=== PATIENT | male | born 1945 | race Caucasian/White ===

== ENCOUNTER → 2019-02-03 06:32 | Outpatient (CLI) | payer MEDICARE, SELFPAY ==
--- NOTE | 2019-02-03 06:39 | CT_ITS ---
HISTORY: ARTHRITIS OF LEFT SHOULDER. HISTORY OF ROTATOR CUFF SURGERY TECHNIQUE: Noncontrast bone protocol CT of the left shoulder was performed without contrast. 2D reformats were performed by the technologist. Number of images including paperwork: [phone]. A radiation dose optimization technique was used for this scan. COMPARISON: None FINDINGS: BONES: No acute fracture. Suture anchors are present in the humeral head. JOINTS: No subluxation. Severe degenerative changes of the glenohumeral joint are noted with joint space narrowing, subchondral sclerosis and large humeral head osteophyte. Moderate to severe degenerative changes of the acromioclavicular joint are also noted. Acromiohumeral distance is narrowed measuring as little as 1 mm. Degenerative changes are seen in the visualized spine. SOFT TISSUES: Unremarkable. FOREIGN BODY: No radiopaque foreign body. VISUALIZED CHEST: Unremarkable. CT/Extremity Upper without Contra IMPRESSION: 1. No acute osseous abnormality. 2. Severe degenerative changes of the glenohumeral joint. 3. Acromiohumeral narrowing indicating rotator cuff degeneration. 4. Moderate to severe degenerative changes of the acromioclavicular joint. Individualized dose optimization techniques were used for this CT. at 0258 Reported and signed by: Reshma Luis MD Electronically Signed: Reshma Luis MD at 2:58 EDT Tel , Service support ,
== END ==
PROVIDERS: Family Provider Family Medicine; PCP Family Medicine; Referring Provider Specialist; Visit Provider Specialist
DX: M19.212 Secondary osteoarthritis, left shoulder (principal)
CPT/HCPCS: 73200

== ENCOUNTER 2020-11-30 12:55 | Observation (INO) | payer MEDICARE, SELFPAY ==
--- NOTE | 2020-11-14 12:49 | HP.PCM_ITS ---
History and Physical History and Physical [facility] Patient Name: Claudy Sawant : 1945 From: ARIEL SUE PA-C DATE OF SURGERY: 11/30/2020 SCHEDULED PROCEDURE: left total hip arthroplasty HISTORY OF PRESENT ILLNESS: Preoperative history and physical exam was performed on November 14, 2020. This is a 75-year-old male who has been having ongoing pain pain is increased with going up and down stairs, sitting, and getting up from a seated position. He does have start up pain. Pain is being constant and sharp. Patient has difficult time getting dressed due to the pain. Difficulty with putting on his socks and shoes. Patient has attempted rest with no relief in symptoms. 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 He has been on oral medications with no relief in symptoms. He denies previous surgery on his left hip. Patient has medical history pertinent for gastroesophageal reflux disease hypertension, and sleep apnea. He has attempted nonsteroidal anti-inflammatories without relief. After failing conservative measures and discussing treatment options with Dr. Sebas Duncan, the patient does want to proceed with a left total hip arthroplasty. We are obtaining surgical clearance from the primary care physician Dr. Dunlap. Patient also reports needing a implant for history of end did have it initially scheduled for 2 weeks following the surgery. I explained that we are not able to proceed with any oral/dental work for 3 months postoperatively due to the risk of infection unless it is an emergency. He did voice understanding and agreement. REVIEW OF SYSTEMS: ROS: Const: Denies change in appetite, fever and weight change. CV: Denies chest pain, heart murmur and irregular heartbeat. Resp: Denies cough, pneumonia, shortness of breath, tuberculosis and wheezing. GI: Reports heartburn, but denies constipation, diarrhea, nausea, rectal itching, bloody stools and vomiting. : Denies incontinence. Musculo: Denies leg swelling, pain, trouble walking and weakness. Skin: Denies Raynaud's, history of shingles and tattoo. Neuro: Denies ambulatory dysfunction, dizziness, numbness/tingling and tremor. Psych: Denies anxiety, insomnia and stress. Nilson/Lymph: Denies anemia, bleeding/bruising tendency and past transfusion. Reviewed, no changes. PAST MEDICAL HISTORY: Advance Care Plan: Other Directive, POA Effective Date: 12/25/2018 Other Directive, LIVING WILL Effective Date: 12/25/2018 PMH: Medical Problems: Arthritis, Sleep Apnea, High Blood Pressure, Reflux, Hypercholesterolemia Accidents: Fracture - RT wrist Surgical Hx: Shoulder Arthroscopy Lt - Madiha Shoulder Arthroscopy Rt - Madiha Knee Replacement LT - Madiha Knee Replacement RT - Madiha Left Reverse Tsa - (07/14/2019) BY [facility] Anesthesia Complications: None Assistive Devices: Glasses, Cpap Reviewed and updated. SOCIAL HISTORY: SH: Marital: .Occupation: Retired.Work Status: Retired.Hand Dominance: Right- handed. Personal Habits: Cigarette Use: Never Smoked Cigarettes.Smokeless Tobacco: Never Used Smokeless Tobacco.E-Cigarette Use: Former Smoker.Alcohol: Occasionally.Drug Use: Denies Use.Enjoy Exercising: Daily. Reviewed, no changes. VITALS: Ht: 64.5 Wt: 174lb Wt [id number] BMI: 29.4 BP: 128/66 Pulse: 83 Resp: 16 T: 96.6 T: 35.9C Pain Level: 5 ALLERGIES: Ancef - Rash Cefazolin MEDICATIONS: Nexium 20 mg po daily as needed, Ibuprofen 200 200 mg 1-2po bid prn, Tylenol Extra Strength 500 mg 2 by mouth every 8 hours PRN, Lisinopril 10 mg take 1 (one) tablet daily in the evening, Hydrochlorothiazide 12.5 mg take 1 (one) tablet daily in the morning, Lovastatin 40 mg take 1 tablet by mouth every day in the evening PRE-OP EXAM: General appearance:NORMAL Other: Eyes: Conjunctivae and lids: NORMAL Pupils: ERR Ears, Nose, Mouth, and Throat: NORMAL Other: Inspection of lips, teeth and gums: NORMAL Other: Neck: Examination of neck: no masses noted. Respiratory: Assessment of respiratory effort: NORMAL Other: Auscultation of lungs: clear to auscultation no wheezes, rhonchi or rales. Cardiovascular: Auscultation of heart: regular rate and rhythm, no murmurs, gallops or rubs. Exam of carotid arteries: NORMAL Other: Gastrointestinal: Exam of abdomen: soft, nontender, nondistended bowel sounds present. PHYSICAL EXAMINATION: Patient does walk with an antalgic gait. Left hip is 2 mm shorter. He has tenderness palpation over the left greater trochanteric region. Left hip range of motion: 70 flexion, internal rotation 5, external rotation 35 with groin pain associated with range of motion. 4/5 strength on the left. Sensation intact to light touch. Neurovascularly intact. IMAGING STUDIES: X-rays on the left hip reveal joint space narrowing, subchondral sclerosis, osteophyte formation consistent with severe stage IV osteoarthritis. IMPRESSION: 1. Severe left hip osteoarthritis 2. Hypertension 3. Gastroesophageal reflux disease 4. Sleep apnea with use of CPAP 5. Hypercholesterolemia PLAN: Dr. Sebas Duncan did discuss and review with the patient all treatment options including surgical versus nonsurgical options. Patient does wish to proceed with the above-stated procedure. Potential risks, benefits, and complications of the procedure were discussed in detail including but not limited to , infection, nerve and blood vessel damage, persistent pain, numbness, tingling, paresthesias, blood clot, pulmonary embolism, and requirement for possible further surgery. The patient expressed full understanding and has no further questions for the doctor. Patient does agree to proceed with the above-stated procedure and has signed the surgery consent form. We discussed the current risks associated with COVID 19. This does include the risk of exposure while in the hospital. Patient was reassured local hospitals have low infection rates and are taking all necessary precautions to avoid exposure to patients. In addition, we discussed strategies that can be used to help limit exposure including those that limit the patient's time in the hospital. Also using strategies to limit the patient's need for continued inpatient services after being discharged from the hospital. Patient was notified that we will need to comply with any screening or testing the hospital wishes to perform or that surgery may be delayed for any positive results. This dictation was created using voice recognition software. Phonetic and/or grammatical errors may exist. ___ I have re-examined the patient. There are no clinical changes since date of exam. ___ See progress notes for changes. ___ Dictated on admission Date: Time: Signature:
--- NOTE | 2020-11-22 08:45 | EKG12_ITS ---
Test Reason : PRE OP Blood Pressure : / mmHG Vent. Rate : 069 BPM Atrial Rate : 069 BPM P-R Int : 170 ms QRS Dur : 092 ms QT Int : 378 ms P-R-T Axes : 057 050 065 degrees QTc Int : 405 ms Normal sinus rhythm Normal ECG Confirmed by DIEGO FAGAN, DOYLE ([id number]), editor sound RICA BETANCOURT ([id number]) on 11/23/2020 9:00:51 AM Referred By: Sebas Duncan Confirmed By:DOYLE CORTEZ MD
[2020-11-22 09:57] LABS: Absolute Lymphocyte Count 0.84 X10^3/uL (0.83-4.51); Absolute Neutrophil Count 2.9 X10^3/uL (2.0-7.7); Basophil# 0.04 X10^3/uL; Basophil% 0.9 % (0-1); Eosinophil# 0.18 X10^3/uL; Eosinophils% 4.1 % (0-5); Hematocrit 41.9 % (40-54); Hemoglobin 13.4 g/dL (13.0-16.5); Lymphocyte # 0.84 X10^3/ul (0.83-4.51); Lymphocyte % 18.9 % (19-41); Mean Corpuscular Hgb 30.4 pg (27.0-32.0); Monocyte# 0.47 X10^3/uL; Monocyte% 10.6 % (0-10); NRBC Flagged by Analyzer 0 % (0-5); Neutrophil % 65.3 % (47-70); Platelet Count 227 K/mm3 (150-450); RBC Distribution Width CV 12.7 % (11.6-14.6); RBC Distribution Width SD 44.2 fl (35.1-43.9); Red Blood Count 4.41 M/mm3 (4.6-6.2); White Blood Count 4.4 K/mm3 (4.4-11.0)
[2020-11-22 10:24] LABS: Anion Gap 5 (5-15); BUN 27 mg/dL (7-18); BUN/Creat Ratio 23.3 RATIO (10-20); Calcium,Total 9.3 mg/dL (8.5-10.1); Chloride 104 mmol/L (98-107); Creatinine, Serum 1.16 mg/dL (0.70-1.30); EST Glomerular Filtration Rate 65 mL/min (>60); Est Glom Filt Rate - Afr Amer 79 mL/min (>60); Glucose 96 mg/dL (74-106); Potassium 4.2 mmol/L (3.5-5.1); Sodium Level 138 mmol/L (136-145)
[2020-11-22 10:48] LABS: Magnesium 2.3 mg/dL (1.6-2.6)
[2020-11-28 11:15] LABS: Albumin, Serum 3.8 g/dL (3.2-5.0)
[2020-11-30] VITALS (19 sets, daily range): BP systolic 81–143; BP diastolic 44–92; PULSE 69–86; RESP 16–20; TEMP 35.7–37.1; O2SAT 92–100; BMI 28.3
[2020-11-30] MEDS: Lactated Ringers 1,000 ML 100 ML IV (09:10)
[2020-11-30 09:15] LABS: Bedside Glucose 84 mg/dL (70-110)
[2020-11-30] MEDS: Celecoxib 200 MG Capsule 400 MG PO (09:28)
[2020-11-30] MEDS: Acetaminophen 500 MG Tablet 1000 MG PO ×2 (09:29→17:04)
[2020-11-30] MEDS: Gabapentin 600 MG Tablet PO (09:29)
[2020-11-30] MEDS: Cefazolin 2 GM in 0.9% Normal Saline 100 ML IV (11:28)
--- NOTE | 2020-11-30 12:25 | RAD_ITS ---
STUDY: X-RAY - PELVIS AND LEFT HIP REASON FOR EXAM: Male, 75 years old. Intraoperative digital documentation views of left total hip arthroplasty. TECHNIQUE: 4 intraoperative digital documentation views of the pelvis and hip. COMPARISON: None. FINDINGS: 4 intraoperative digital documentation views of left total hip replacement were obtained. RAD/HIP, UNI W/ Pelvis 2-3 Views IMPRESSION: Intraoperative digital documentation films. Electronically Signed: Joseluis Meadows MD at 13:06 EDT , Service support ,
[2020-11-30] MEDS: dexAMETHasone 10 MG/ML Vial IV (12:37)
--- NOTE | 2020-11-30 12:51 | RAD_ITS ---
STUDY: X-RAY - PELVIS AND LEFT HIP REASON FOR EXAM: Male, 75 years old. Post Op -- AP both hips on single levi/lateral of op hip PACU TECHNIQUE: 2 views of the pelvis and hip. COMPARISON: None. FINDINGS: The patient is status post left total hip replacement. There is good alignment. Postoperative soft tissue changes. RAD/Hip Min 2 Views (Portable) IMPRESSION: Status post left total hip replacement. There is good alignment. Postoperative soft tissue changes. Electronically Signed: Moo Hidalgo MD at 14:08 EDT , Service support ,
--- NOTE | 2020-11-30 12:56 | OP.PCM_ITS ---
Report of Operation Date of Procedure: 11/30/20 Pre-Operative Diagnosis: Left hip primary osteoarthritis Post-Operative Diagnosis: Left hip primary osteoarthritis Surgery/Procedure Performed:: Left minimally invasive direct anterior hip replacement Description of Surgical Findings:: STABLE HIP hospital pharmacy technician: Tye Dupont Type of Anesthesia: Spinal Special Medications: 2 g Ancef, 1 g TXA at incision, 1 g TXA closure, 10 mg Decadron, joint cocktail (5 mg Duramorph, 30 mL of 0.5% Ropivicaine, 1000 units of epinephrine, 30 mg of Toradol) Specimen's removed: Bony cuts Estimated Blood Loss (mL): 250 Fluids Replaced: 1200 ml Description of Procedure: Components used: 1. Accolade 2 [place] femoral stem size 5 127? 2. [place] trident 2 acetabular shell size 58 mm 3. [place] X3 polyethylene F 4. Prachi Biolox delta 36mm, 2.5mm femoral head Brief history operative indications: 75 yo M who failed conservative measures for their hip osteoarthritis. X-rays were consistent with osteoarthritis including joint space narrowing, osteophyte formation and subchondral cysts. Total hip replacement was discussed with the patient with risks and benefits including but not limited to blood loss, DVTs, PEs, neurovascular damage, dislocation, general risks of anesthesia including loss of life. Patient demonstrated an understanding medical clearance is obtained the patient was consented for surgery. Procedure: On the date of procedure the patient's L hip was marked in the preoperative area. Patient was then taken back to the operating room where anesthesia assumed control of the C-spine and airway and administered anesthetic. Patient was transferred to the operating table and placed in the supine position. The hips were placed at the break of the bed and a sacral bump was placed. L The lower extremity was then prepped out in a sterile fashion using chlorhexidine while the surgeon scrubbed. The PA was vital in the positioning of the patient. Upon reentering the room the left lower extremity was draped in the standard or thopedic fashion and the incision was marked. A timeout was called and everyone agreed upon the side, the site, the procedure be performed, antibody given, and patient's identity. At this time incision was made through skin, subcutaneous tissue, and fat down to fascia. The fascia was then incised and the TFL was retracted laterally. A retractor was placed on the lateral border of the femoral neck. Attention was directed to the inferior portion of the approach and all crossing vessels were identified and appropriately coagulated. A retractor was then placed on the medial portion of the femoral neck. The anterior capsule was then cleared of all soft tissue and then H shaped capsulotomy was made. The retractors were then placed inside the capsule. The femoral neck was identified and a cleanup cut was made. At this time a power corkscrew was used to remove the femoral head. Attention was then turned toward the acetabulum where the soft tissues were appropriately retracted and the acetabulum was sequentially reamed to 58 mm. A 58 mm cup was then selected and impacted into place. Acetabular liner was impacted into place and locking mechanism was verified. The position of the acetabular cup was then verified under live fluoroscopy. Attention was then turned to the femur. Soft tissue releases on the medial and lateral femoral neck were appropriately done, the leg was externally rotated and lateralized. A Bourne retractor was placed medially and proximally to the greater trochanter this allowed appropriate visualization and exposure of the femoral canal. Rongeour was then used to remove excess lateral bone. A canal finder and entry broach were used to open the proximal canal. Once we verified we were down the femoral canal we subsequently broached up to a size 5 femur. The appropriate neck was placed in the previously selected head was trialed with a 2.5 mm neck. Traction was pulled and the hip was reduced with internal rotation. Once it was appropriately reduced and stability was checked. There was minimal shuck, equal leg lengths and appropriate stability with hyperextension and external rotation as well as with 90? flexion and internal rotation. Fluoroscopy was then also used to verify the position of the components and leg lengths using the contralateral side for comparison. The trial components were then dislocated the proximal femur was again exposed and the components were removed from the wound. The final components were verified and opened. The wound was copiously irrigated out with normal saline. The acetabulum was checked for any residual debris. The final components were placed and impacted. Traction and internal rotation were again used to reduce the hip. After adequate reduction the hip remained stable with appropriate leg lengths. The final components were once again checked with live fluoroscopy and were found to be satisfactory. The wound was then copiously irrigated with normal saline once more, and hemostasis was obtained. Closure was then done using #1 Vicryl runner to close the fascia. A 2-0 vicryl interuppted sutures were used to close the subcutaneous skin. A 3-0 Monocryl and Steri-Strips were used for final skin closure. A Silverlon dressing was placed. Patient was awakened by anesthesia and transferred to the [facility]. Patient was then transferred to the PACU for recovery. Postoperative plan: Patient will get 24 hours postop antibiotics. Patient will get in-house physical therapy and will be weight-bear as tolerated. Patient will follow up in office in 2 weeks for a wound check and x-rays. Aspirin 81 mg twice daily. Complications No intraoperative complications Admit VTE Documentation VTE Present on Admission: No VTE Mechan Device Prophylaxis: SCD's and Thigh High PING Hose VTE Pharm Prophylaxis ordered?: Yes
[2020-11-30] MEDS: Lactated Ringers 1,000 ML 999 ML IV (13:00)
[2020-11-30 13:36] LABS: Bedside Glucose 114 mg/dL (70-110)
[2020-11-30] MEDS: Lactated Ringers 1,000 ML 125 ML IV (13:43)
--- NOTE | 2020-11-30 16:39 | PN.HOSP_ITS ---
Subjective Subjective: 75-year-old male presents to the hospital for an elective left anterior hip replacement. This was necessitated by left hip osteoarthritis. Currently denies any significant pain, can move his toes and sensation is i ntact. No recent medication changes or health changes. Objective Data Objective Data Vital Signs: Vital Signs Temp Pulse Resp BP Pulse Ox 97.4 F L 77 16 102/44 L 99 11/30/20 16:14 11/30/20 16:14 11/30/20 16:14 11/30/20 16:14 11/30/20 16:14 Oxygen Flow Rate (L/min) 2 Oxygen Delivery Method Nasal Cannula Weight: 170 lb 3.15 oz Body Mass Index (BMI) 28.3 Intake & Output: Intake and Output for Last 24 Hours 11/29/20 11/30/20 12/01/20 03:59 03:59 03:59 Intake Total 3067.83 / 3067.83 Balance 3067.83 / 3067.83 Lab / Micro Data Result Diagrams: 11/22/20 08:35 11/22/20 08:35 Labs: Laboratory Results - last 24 hr 11/30/20 11/30/20 09:07 13:31 POC Glucose 84 114 H Micro: Microbiology 11/29/20 09:00 Interface Orders SARS-CoV-2 Antigen (Rapid) - Final 11/22/20 08:35 Interface Orders Nasal Screen MRSA/MSSA - Final Radiography Diagnostic Testing: Radiology Impression Hip/Pelvis X-Ray 11/30/20 12:25 IMPRESSION: Intraoperative digital documentation films. Electronically Signed: Joseluis Meadows MD at 13:06 EDT , Service support , Hip X-Ray 11/30/20 12:51 IMPRESSION: Status post left total hip replacement. There is good alignment. Postoperative soft tissue changes. Electronically Signed: Moo Hidalgo MD at 14:08 EDT , Service support , Physical Exam Const alert, oriented x3 and no apparent distress HEENT moist oral mucous membranes Head and Scalp: normocephalic Eyes PERRL, EOMs intact bilaterally and conjunctivae normal Neck no lymphadenopathy, supple and no JVD Resp normal respiratory effort, no use of accessory muscles and clear to auscultation bilaterally Auscultation: Negative for crackles, rales, rhonchi or wheezes Cardio regular rate, regular rhythm, S1 normal heart sound, S2 normal heart sound and no murmurs GI soft to palpation, non-tender and non-distended; Negative for hepatosplenomegaly Extremity no clubbing, cyanosis or edema Skin no rashes or lesions noted Skin Narrative: Dressing intact Neuro moves all extremities, no focal motor deficits and no sensory deficits noted Psych affect normal Assessment & Plan Assessment/Plan (1) Encounter for postoperative care: PLAN: 1. Status post left anterior hip replacement 11/30/2020 for left hip osteoarthritis -Pain management per primary -Ancef per primary -DVT prophylaxis per primary -PT/OT 2. HTN/HLD -We will continue to monitor blood pressures -Check a BMP in the morning -Continue with his home blood pressure medications 3. GERD -Stable -Continue with PPI DVT: Aspirin 81 mg twice daily/SCDs Visit Charges Inpatient E&M: 26967 Subs Hosp L3
[2020-11-30] MEDS: Ensure Surgery 237 ML LIQUID PO (17:03)
[2020-11-30] MEDS: Aspirin 81 MG TAB.CHEW PO (17:04)
[2020-11-30] MEDS: Cefazolin 1 GM/50 ML BAG IV (21:21)
[2020-11-30] MEDS: Senna/Docusate Sodium 1 Tablet 2 TABLET PO (21:21)
[2020-11-30] MEDS: Famotidine 20 MG Tablet PO (23:23)
[2020-12-01 02:19] VITALS: BP 145/59; PULSE 78; RESP 16; TEMP 36.4; O2SAT 98
[2020-12-01] MEDS: Cefazolin 1 GM/50 ML BAG IV (02:32)
[2020-12-01] MEDS: Acetaminophen 500 MG Tablet 1000 MG PO ×2 (02:32→09:33)
[2020-12-01 05:57] LABS: Hematocrit 30.4 % (40-54); Hemoglobin 10.2 g/dL (13.0-16.5); Mean Corp Hgb Conc 33.6 g/dL (32-36); Mean Corpuscular Hgb 31.5 pg (27.0-32.0); Mean Corpuscular Volume 93.8 fL (80-94); Mean Platelet Vol. 9.7 fl (6.2-12.0); Platelet Count 164 K/mm3 (150-450); RBC Distribution Width CV 12.1 % (11.6-14.6); RBC Distribution Width SD 42.1 fl (35.1-43.9); Red Blood Count 3.24 M/mm3 (4.6-6.2); White Blood Count 11.8 K/mm3 (4.4-11.0)
[2020-12-01 06:21] LABS: Anion Gap 4 (5-15); BUN 33 mg/dL (7-18); BUN/Creat Ratio 22.6 RATIO (10-20); Calcium,Total 8.4 mg/dL (8.5-10.1); Chloride 106 mmol/L (98-107); Creatinine, Serum 1.46 mg/dL (0.70-1.30); EST Glomerular Filtration Rate 50 mL/min (>60); Est Glom Filt Rate - Afr Amer 60 mL/min (>60); Estimated Creatinine Clearance 37.44 ml/min; Glucose 155 mg/dL (74-106); Potassium 4.4 mmol/L (3.5-5.1); Sodium Level 136 mmol/L (136-145)
[2020-12-01 07:13] VITALS: O2SAT 94
[2020-12-01 08:04] VITALS: BP 141/71; PULSE 81; RESP 16; TEMP 36.8; O2SAT 97
[2020-12-01] MEDS: Aspirin 81 MG TAB.CHEW PO (08:23)
[2020-12-01] MEDS: Ensure Surgery 237 ML LIQUID PO ×2 (08:29→12:15)
[2020-12-01] MEDS: Famotidine 20 MG Tablet PO (09:33)
[2020-12-01] MEDS: Senna/Docusate Sodium 1 Tablet 2 TABLET PO (09:33)
--- NOTE | 2020-12-01 09:36 | PN.ORTHO_ITS ---
Subjective Subjective: The patient was sitting in bedside chair upon examination. Patient denies any chest pain, shortness of breath, dizziness, lightheadedness, nausea or vomiting, or calf pain. Pain is controlled on medications. No adverse overnight events. Overall patient is doing well. He tolerated physical therapy very well. He is wishing to go home today.. Objective Data Objective Data Vital Signs: Vital Signs Temp Pulse Resp BP Pulse Ox 98.2 F 81 16 141/71 H 97 12/01/20 08:04 12/01/20 08:04 12/01/20 08:04 12/01/20 08:04 12/01/20 08:04 Oxygen Flow Rate (L/min) 2 Oxygen Delivery Method Room Air Weight: 77.2 kg Body Mass Index (BMI) 28.3 Intake & Output: Intake and Output for Last 24 Hours 11/29/20 11/30/20 12/01/20 23:59 23:59 23:59 Intake Total 3367.83 / 3367.83 1491.67 / 1491.67 Balance 3367.83 / 3367.83 1491.67 / 1491.67 Lab / Micro Data Result Diagrams: 12/01/20 05:34 12/01/20 05:34 Labs: Laboratory Results - last 24 hr 11/30/20 12/01/20 12/01/20 13:31 05:34 05:34 WBC 11.8 H RBC 3.24 L Hgb 10.2 L Hct 30.4 L MCV 93.8 MCH 31.5 MCHC 33.6 RDW Std Deviation 42.1 RDW Coeff of Erinn 12.1 Plt Count 164 MPV 9.7 Sodium 136 Potassium 4.4 Chloride 106 Carbon Dioxide 26.0 Anion Gap 4 L BUN 33 H Creatinine 1.46 H Estim Creat Clear Calc 37.44 Est GFR (MDRD) Af Amer 60 Est GFR (MDRD) Non-Af 50 L BUN/Creatinine Ratio 22.6 H Glucose 155 H Calcium 8.4 L POC Glucose 114 H Micro: Microbiology 11/29/20 09:00 Interface Orders SARS-CoV-2 Antigen (Rapid) - Final 11/22/20 08:35 Interface Orders Nasal Screen MRSA/MSSA - Final Radiography Diagnostic Testing: Radiology Impression Hip/Pelvis X-Ray 11/30/20 12:25 IMPRESSION: Intraoperative digital documentation films. Electronically Signed: Joseluis Meadows MD at 13:06 EDT , Service support , Hip X-Ray 11/30/20 12:51 IMPRESSION: Status post left total hip replacement. There is good alignment. Postoperative soft tissue changes. Electronically Signed: Moo Hidalgo MD at 14:08 EDT , Service support , Physical Exam Narrative Vital signs stable and afebrile. Patient is able to plantarflex and dorsiflex actively. Sensation is intact to light touch to saphenous, sural, superficial and deep peroneal, and tibial distribution. Dressing is clean dry and intact. Negative Homans bilaterally, negative signs and symptoms of DVT. Const alert, oriented x3 and no apparent distress Assessment & Plan Assessment/Plan (1) Status post total hip replacement, left: PLAN: 1. S/P left direct anterior total hip arthroplasty POD #1 2. Continue Pain Medications: Tylenol and oxycodone 3. DVT Prophylaxis: Take 81 mg aspirin twice daily for 4 weeks postoperatively for DVT prophylaxis 4. PT/OT: Weightbearing as tolerated 5. H & H: 10.2/30.4, asymptomatic. Postoperative anemia secondary to acute blood loss from surgery without any intra operative complications. 6. Reactive leukocytosis: Currently 11.8, afebrile. Patient did receive Decadron intraoperatively 7. Continue postoperative medical management per medicine 8. Encouraged Incentive Spirometry 9. Disposition: Plan will be for discharge home today. Patient's pain is been well controlled and he tolerated physical therapy very well. He does have outpatient physical therapy established. Patient will follow-up per postop instructions. Prescriptions will be E scribed to his primary pharmacy. I have reviewed the [place] Automated Rx Reporting System (OARRS) report for this patient for refill pattern and other prescriber involvement as part of the appropriate surveillance for the provision of acute and chronic controlled medications. The report was requested and reviewed on the date of this entry and was considered in the prescribing process.
--- NOTE | 2020-12-01 09:40 | PCM.DC ---
Discharge Instructions Diet Discharge Diet: No restrictions Activity Discharge Activity: May Not Drive (while taking narcotic pain medications.) and May not drive while taking narcotic pain medications. May shower in (days): 1 (only if incision is dry and without drainage. Do NOT soak/submerge in tub/pool/arroyo/stream/hot tub.) Ice area for (Minutes): 20 Weight Bearing Status: Weight bearing as tolerated Keep extremity elevated above heart level: Operative Extremity Additional Activity Instructions:: Wear elastic stockings for 2 weeks. DO NOT use alcohol with narcotic pain medication. DO NOT make important decisions while taking narcotic medication. If you have problems with taking your medication (rash, itching, nausea, etc.) call the office at once. Dressing / Incision Call your doctor if your incision/area has: Continuous Slow Oozing, Sudden Increased Bleeding, Increased Pain/ Swelling, Increased Redness and Foul Smelling Discharge Call your doctor if you observe: Fever of 101 or Higher, Shortness of breath, Chest pain, Calf discomfort and Uncontrolled pain Remove Dressing in: 4 days (Okay to remove dressing on December 05, 2020) Additional Dressing/Incision Instructions:: Follow [facility] Post-op Instructions. Once postoperative dressing has been removed only use gentle soap and water over the incision. Do not use any ointments, Neosporin, salves, alcohol pads over the incision for 6 weeks postoperatively. Do not submerge underwater for 6 weeks postoperatively. Discharge Plan Admission Admit Date/Time: 11/30/20 12:55 Attending Provider: Sebas Duncan Primary Care Provider: Javier Dunlap Consulting Providers: Nathaniel Suarez Discharge Orders/Prescriptions Prescriptions: New acetaminophen 500 mg Tablet 1,000 mg PO Q8H 14 Days Qty: 84 RF: 0 aspirin 81 mg Tablet,Chewable 81 mg PO BIDCM 30 Days Qty: 60 RF: 0 oxycodone 5 mg Tablet 5 - 10 mg PO Q4H PRN PRN (Reason: pain) 7 Days Qty: 36 RF: 0 sennosides-docusate sodium [Stool Softener-Stimulant Laxat] 8.6-50 mg Tablet 2 tab PO BID Qty: 14 RF: 0 Continued lovastatin 40 MG tablet 40 mg PO QHS RF: 0 lisinopril 10 MG tablet 10 mg PO QHS RF: 0 esomeprazole magnesium [Nexium] 20 MG capsule 20 mg PO QHS RF: 0 hydrochlorothiazide 6.25 MG tablet 12.5 mg PO BREAKFAST RF: 0 Other Ambulatory Orders: 12 Lead EKG (Routine) Location: None Selected Ordered By: Dr. Sebas Duncan Referrals / Follow Up: Javier Dunlap MD [Primary Care Provider] - Disposition Disposition (needs filled in before D/C Order can be placed): Home, self care
--- NOTE | 2020-12-01 10:40 | CASEMGMT ---
RN CM AVICULTURIST CM to room to meet with patient for initial transition planning/care coordination assessment. KISHA MARRERO introduced self and role at [facility]. Pt voices understanding and consents to assessment at this time. Pt sitting up in recliner chair in room in no distress at this time. Pt is A/O at this time and answers all questions appropriately. Care providers, pharmacy, and demographics verified/updated at this time. PCP: Dr Javier Dunlap Specialists: Dr Duncan--ortho Preferred Pharmacy: [facility] Insurance: [facility] Prescription Benefit: none Living Will/HPOA: Pt thinks he has completed both of these and states, , Tory, would be POA. LNOK: , Tory. They have 4 adult children Living Arrangements: Lives w/his , Tory in one-story home w/4 steps to enter. See PT eval. Pt independent prior to surgery. yobani to help as needed. Transportation: Pt/. DME: [facility] has the following DME: cane, walker, silk spotter, rails/grab bars Pt states no need for further DME at this time. HHC/SNF: No history of either. Denies need for HHC. Has appt scheduled @ OP therapy @ [facility] 12/05 @ 0900. Pt aware. Pt wishes to return home with OP therapy and states has no concerns with going home at time of discharge. CM to follow for any discharge planning/needs. Pt voices no concerns/needs at this time. Advised pt to ask for CM if any questions/concerns/needs arise. Voices understanding. PLAN: Home w/OP therapy Roddy BRITO RN, CM
--- NOTE | 2020-12-01 13:13 | PN.HOSP_ITS ---
Subjective Subjective: Patient seen and examined. He has no complaints. Pain is well controlled. He is POD 1 for left anterior hip replacement. He has remained hemodynamically stable. Objective Data Objective Data Vital Signs: Vital Signs Temp Pulse Resp BP Pulse Ox 98.2 F 81 16 141/71 H 97 12/01/20 08:04 12/01/20 08:04 12/01/20 08:04 12/01/20 08:04 12/01/20 08:04 Oxygen Flow Rate (L/min) 2 Oxygen Delivery Method Room Air Weight: 170 lb 3.15 oz Body Mass Index (BMI) 28.3 Intake & Output: Intake and Output for Last 24 Hours 11/29/20 11/30/20 12/01/20 23:59 23:59 23:59 Intake Total 3367.83 / 3367.83 1491.67 / 1491.67 Balance 3367.83 / 3367.83 1491.67 / 1491.67 Lab / Micro Data Result Diagrams: 12/01/20 05:34 12/01/20 05:34 Labs: Laboratory Results - last 24 hr 11/30/20 12/01/20 12/01/20 13:31 05:34 05:34 WBC 11.8 H RBC 3.24 L Hgb 10.2 L Hct 30.4 L MCV 93.8 MCH 31.5 MCHC 33.6 RDW Std Deviation 42.1 RDW Coeff of Erinn 12.1 Plt Count 164 MPV 9.7 Sodium 136 Potassium 4.4 Chloride 106 Carbon Dioxide 26.0 Anion Gap 4 L BUN 33 H Creatinine 1.46 H Estim Creat Clear Calc 37.44 Est GFR (MDRD) Af Amer 60 Est GFR (MDRD) Non-Af 50 L BUN/Creatinine Ratio 22.6 H Glucose 155 H Calcium 8.4 L POC Glucose 114 H Micro: Microbiology 11/29/20 09:00 Interface Orders SARS-CoV-2 Antigen (Rapid) - Final 11/22/20 08:35 Interface Orders Nasal Screen MRSA/MSSA - Final Radiography Diagnostic Testing: Radiology Impression Hip X-Ray 11/30/20 12:51 IMPRESSION: Status post left total hip replacement. There is good alignment. Postoperative soft tissue changes. Electronically Signed: Moo Hidalgo MD at 14:08 EDT , Service support , Physical Exam Const alert, oriented x3 and no apparent distress HEENT moist oral mucous membranes Eyes PERRL, EOMs intact bilaterally and conjunctivae normal Neck no lymphadenopathy, supple and no JVD Resp normal respiratory effort, no use of accessory muscles and clear to auscultation bilaterally Auscultation: Negative for crackles, rales, rhonchi or wheezes Cardio regular rate, regular rhythm, S1 normal heart sound, S2 normal heart sound and no murmurs GI soft to palpation, non-tender and non-distended; Negative for hepatosplenomegaly Extremity no clubbing, cyanosis or edema Skin no rashes or lesions noted Skin Narrative: Dressing intact over anterior left hip Neuro moves all extremities, no focal motor deficits and no sensory deficits noted Psych affect normal Assessment & Plan Assessment/Plan (1) Encounter for postoperative care: (2) Status post total hip replacement, left: PLAN: #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 Fall precautions * incentive spirometry * #Hypertension: controlled. Continue home BP meds-lisinopril and HCTZ #Hyperlipidemia: on statin #GERD: stable. on PPI DVT prophylaxis: aspirin 81mg bid as per orthopedics Multi Select Codes Visit Charges Visit Charges: 14927 Subs Hosp L2
[2020-12-01 14:14] VITALS: BP 142/66; PULSE 73; RESP 16; TEMP 37; O2SAT 96
== END 2020-12-01 14:39 | disposition home or self-care (01) ==
LOC: MS3 12-01 07:11 → SDC 12-01 08:57 → MS3 12-01 08:57
PROVIDERS: Anesthesiology; Admitting Provider Specialist; PCP Family Medicine; Referring Provider Specialist; Visit Provider Specialist
PROC: (CPT 27284; principal; 2020-11-30 11:05)
DX: M16.12 Unilateral primary osteoarthritis, left hip (principal); I10 Essential (primary) hypertension; K21.9 Gastro-esophageal reflux disease without esophagitis; G47.30 Sleep apnea, unspecified; E78.5 Hyperlipidemia, unspecified; Z87.891 Personal history of nicotine dependence; Z79.899 Other long term (current) drug therapy
CPT/HCPCS: 01214; 27130; 36415; 73502; 76000; 80048; 82040; 82962; 83735; 85025; 85027; 87077; 87081; 87426; 93005; 94762; 96361; 96365; 96366; 97110; 97116; 97162; 97166; 97530; 97535; 99218; 99251; C1776; C9803; J7050; J7120; G0378; G0379; G0463; J2405

== ENCOUNTER → 2021-12-04 | Outpatient (CLI) | payer MEDICARE, SELFPAY ==
--- NOTE | 2021-12-04 09:31 | MRI_ITS ---
STUDY: MRI RIGHT ANKLE WITHOUT CONTRAST REASON FOR EXAM: Right ankle pain and swelling for a few years. TECHNIQUE: Standardized fat and water weighted pulse sequences were obtained in all 3 orthogonal planes. COMPARISON: None. FINDINGS: There is mild edema in the medial and lateral subcutis adipose space. There is a small volume of fluid in the proximal posterior tibialis tendon sheath (T2 axial images 7-10). The posterior tibialis tendon is morphologically normal. There is hindfoot valgus deformity and subfibular impingement with bone edema (T2 coronal image 11). Normal flexor digitorum longus tendon. Normal flexor hallucis longus tendon. There is fluid in the peroneal tendon sheath, mostly distal to the lateral malleolus (inversion recovery sagittal image 2). There is lateral dislocation of the peroneus longus tendon (T2 axial images 16, 17). There is no demonstrated peroneal tendon tear. Normal tibialis anterior tendon. Normal extensor hallucis longus tendon. Normal extensor digitorum longus tendons. There is very mild Achilles tendinosis (inversion recovery sagittal images 10, 11). Normal plantar fascia. There is a small plantar calcaneal enthesophyte. Normal intrinsic muscles of the rearfoot. Normal distal tibiofibular syndesmotic ligamentous complex. There is a partial tear of the anterior talofibular ligament (T2 axial images 18, 19). Normal calcaneofibular and posterior talofibular ligaments. There is mild edema and a small cyst in the sinus tarsi (inversion recovery sagittal image 9). Normal deltoid ligamentous complexes. There is mild cystic change/bone edema at the attachment sites of the deltoid ligament. Normal plantar calcaneonavicular (spring) ligament. There are small marginal osteophytes of the tibiotalar articulation and mild chondral thinning at the lateral aspect of the articulation (T2 coronal image 15) and slight subchondral bone edema of the lateral talar dome without osteochondral talar dome lesion. There is a small tibiotalar joint effusion and small intra-articular bodies at the posterior aspect of the tibiotalar articulation (inversion recovery sagittal images 13, 14). There is posterior subtalar arthrosis with chondral loss and subchondral bone edema (inversion recovery sagittal images 10-12). There is a posterior subtalar joint effusion (inversion recovery sagittal images 7, 8). There is an os trigonum with bone edema (inversion recovery sagittal image 10). There is bone edema in the sustentaculum lalo (T2 coronal image 13). There is an osteophyte at the superior aspect of the talar head without chondral thinning of the talonavicular articulation. There is a small effusion of the calcaneocuboid articulation (inversion recovery sagittal images 4, 5). There is mild arthrosis of the navicular-cuneiform articulations with mild chondral thinning and mild subchondral bone edema (inversion recovery axial oblique image 10). MRI/Lower Ext Joint Only (Routine) IMPRESSION: Mild posterior tibialis tenosynovitis. Hindfoot valgus deformity with subfibular impingement. Lateral dislocation of the peroneus longus tendon and peroneal tenosynovitis. Partial tear of the anterior talofibular ligament. Posterior subtalar arthrosis. Mild tibiotalar arthrosis with intra-articular bodies. Mild arthrosis of the navicular-cuneiform articulations. Os trigonum with bone edema. Bone edema in the sustentaculum lalo Very mild Achilles tendinosis. Tibiotalar, posterior subtalar and calcaneocuboid joint effusions. Electronically Signed: Ross Boudreaux MD at 13:19 EDT ,
== END | disposition home or self-care (01) ==
LOC: MRI 09:25
PROVIDERS: PCP Family Medicine; Referring Provider Podiatrist; Visit Provider Podiatrist
DX: M19.071 Primary osteoarthritis, right ankle and foot (principal)
CPT/HCPCS: 73721

== ENCOUNTER → 2022-06-04 | Outpatient (CLI) | payer MEDICARE, SELFPAY ==
[2022-06-04 12:21] LABS: Absolute Lymphocyte Count 1.07 X10^3/uL (0.83-4.51); Absolute Neutrophil Count 3.6 X10^3/uL (2.0-7.7); Basophil# 0.03 X10^3/uL; Basophil% 0.6 % (0-1); Eosinophil# 0.17 X10^3/uL; Eosinophils% 3.2 % (0-5); Hematocrit 43.2 % (40-54); Hemoglobin 14.4 g/dL (13.0-16.5); Lymphocyte # 1.07 X10^3/ul (0.83-4.51); Lymphocyte % 20.2 % (19-41); Mean Corp Hgb Conc 33.3 g/dL (32-36); Mean Corpuscular Hgb 31.1 pg (27.0-32.0); Mean Corpuscular Volume 93.3 fL (80-94); Mean Platelet Vol. 10.2 fl (6.2-12.0); Monocyte# 0.45 X10^3/uL; Monocyte% 8.5 % (0-10); NRBC Flagged by Analyzer 0 % (0-5); Neutrophil # 3.57 X10^3/uL (2.7-7.7); Neutrophil % 67.3 % (47-70); Platelet Count 228 K/mm3 (150-450); RBC Distribution Width CV 12.6 % (11.6-14.6); RBC Distribution Width SD 43.5 fl (35.1-43.9); Red Blood Count 4.63 M/mm3 (4.6-6.2); White Blood Count 5.3 K/mm3 (4.4-11.0)
[2022-06-04 13:12] LABS: ALB/GLOB Ratio 0.9 RATIO (0.9-2.4); AST(SGOT) 19 U/L (15-37); Alanine Aminotransfer ALT/SGPT 31 U/L (16-61); Albumin, Serum 3.5 g/dL (3.2-5.0); Alkaline Phosphatase 100 U/L (45-117); Anion Gap 7 (5-15); BUN 19 mg/dL (7-18); BUN/Creat Ratio 15.1 RATIO (10-20); Calcium,Total 8.8 mg/dL (8.5-10.1); Chloride 107 mmol/L (98-107); Creatinine, Serum 1.26 mg/dL (0.70-1.30); EST Glomerular Filtration Rate 59 mL/min (>60); Est Glom Filt Rate - Afr Amer 71 mL/min (>60); Globulin 3.8 g/dL (2.2-4.2); Glucose 111 mg/dL (74-106); Potassium 3.7 mmol/L (3.5-5.1); Protein, Total 7.3 g/dL (6.4-8.2); Sodium Level 141 mmol/L (136-145)
== END | disposition home or self-care (01) ==
LOC: MFPLAB 10:33
PROVIDERS: PCP Family Medicine; Visit Provider Family Medicine
DX: Z01.818 Encounter for other preprocedural examination (principal)
CPT/HCPCS: 36415; 80053; 85025

== ENCOUNTER 2022-06-11 15:17 | Inpatient (IN) | payer MEDICARE, SELFPAY ==
[2022-06-11] VITALS (10 sets, daily range): BP systolic 99–149; BP diastolic 54–82; PULSE 56–90; RESP 16–18; TEMP 35.9–36.8; O2SAT 94–99; BMI 28.4
[2022-06-11] MEDS: Lactated Ringers 1,000 ML 15 ML IV ×2 (10:25→14:45)
[2022-06-11] MEDS: Clindamycin 900 MG/50 ML BAG 75 MG IV (11:54)
--- NOTE | 2022-06-11 12:00 | TESH_PTH ---
[id number]: MS3 U#:[id number] AGE/SX: 77/M ROOM: [facility] RE06/11/[address]: Dr. Dejuan Rankin DPM : 1945 BED: 1 DIS: 06/14/2022 SPEC #: [id number] RECD: 06/12/22 06:55 STATUS: AYAN PAULA #: [id number] JAIMIE: 06/11/22 12:[address]: Dejuan Rankin DEPT: SURGICAL PATHOLOGY RECD BY: Beulah Downey ENTERED: 06/12/22 08:05 SP TYPE: TENDON OTHR DR: SONIA Torres Tissues: A - Tendon and tendon sheath, NOS B - Bone of foot, NOS C - Bone of foot, NOS Procedures: Decalcification bone/plaque Surgery Specimen Level III HEADER OPERATION: Subtalar joint fusion arthrodesis, ankle arthrotomy and debrided PRE-OP DIAGNOSIS: Right ankle and subtalar joint arthritis, peroneal tendinopathy/dislocation/tears TISSUE SUBMITTED: A. Debrided tissue right peroneal tendon, B. Right subtalar joint debridement, C. Right debrided ankle MICROSCOPIC DIAGNOSIS A. Debrided tissue right peroneal tendon, biopsy: Pieces of fibroadipose and skeletal muscle tissue with reactive changes. B. Right subtalar joint debridement: Fragments of bone and cartilage with reactive changes. C. Right debrided ankle: Pieces of bone with reactive and degenerative changes. /SJ 06/15/22 MICROSCOPIC DESCRIPTION Slides are reviewed. GROSS DESCRIPTION A. Received in fixative is one container labeled with the patient's name and designated right peroneal tendon. The specimen consists of multiple irregular fragments of yellow red soft tissue measuring in aggregate 5.5 x 3 x 1.0 cm. No mass lesion is identified. Recruiting Team Lead tissue is submitted in one cassette. B. Received in fixative is one container labeled with the patient's name and designated right subtalar joint. The specimen consists of multiple irregular fragments of bone measuring in aggregate 1.5 x 0.5 x 0.1 cm. The entire specimen is submitted in one cassette after decalcification. C. Received in fixative is one container labeled with the patient's name and designated right debrided ankle. The specimen consists of multiple irregular fragments of bone measuring in aggregate 3 x 2 x 1 cm. The entire specimen is submitted in two cassettes after decalcification. /SJ?cc 06/12/2022 TC:5 CPT:34270 x3, 62520 x2
--- NOTE | 2022-06-11 12:07 | RAD_ITS ---
STUDY: X-RAY - RIGHT ANKLE REASON FOR EXAM: Male, 77 years old. Ankle arthrotomy. TECHNIQUE: 3 view(s) of the ankle. COMPARISON: No priors provided. FINDINGS: Fluoroscopic images from arthrodesis of the subtalar joint. Fluoroscopy time not provided. RAD/Ankle min 3 Views IMPRESSION: Please see operative note for details. Electronically Signed: Tavo Drake MD at 7:23 EST Reading Location ID and State: [facility] / [place] Tel , Service support ,
[2022-06-11] MEDS: Bupivacaine 0.25% 30 ML Vial (15:03)
--- NOTE | 2022-06-11 15:10 | OP.PCM_ITS ---
Report of Operation Date of Procedure: 06/11/22 Pre-Operative Diagnosis: Osteoarthritis right ankle and subtalar joint Peroneal tendinopathy, with peroneal tendon tear, right Post-Operative Diagnosis: Same Surgery/Procedure Performed:: Right subtalar joint arthrodesis Right ankle arthrotomy and debridement Right peroneal tendons debridement and repair Surgeon: Dejuan Rankin manager of tires sales: Type of Anesthesia: Spinal Specimen's removed: 1. Debrided peroneal tendons, right - sent to pathology 2. Subtalar joint, right - sent to pathology 3. Debrided right ankle - sent to pathology Description of Procedure: Indications: This is a 77 year-old gentleman who has chronic right foot and ankle pain which has been worsening. He has tried extensive nonsurgical treatment - this has included but not limited to AFO bracing,changes in shoegear, injection therapy, rest, and anti-inflammatories as well. A second opinoin has been obtained from Dr. Coleman as well. Significant pain persists despite this. Xrays and MRI have been obtained pre operatively and reviewed.?This was discussed with him in detail. He has pain to the peroneal t endons, subtalar joints and anterior ankle joint area on the right foot and ankle. He would like to proceed with surgical intervention - we discussed subtalar joint arthrodesis, debrided/repair of peroneal tendons and ankle arthrotomy and debridement of ankle anteriorly on the right foot/ankle. The procedures were reviewed with him, as well as the goals, estimated recovery and the benefits vs risks with him. No weightbearing for at least 8 weeks, then protected weightbearing in CAM Walker for likely 4-6 weeks - could be longer. Can take 12-14 months for maximal healing - possibly longer. All the consent forms were reviewed with him and he freely signed them. No guarantees were given nor implied. No warrantees were given. Operative Procedure: The patient was brought back into the operating room.? The patient received spinal and MAC anesthesia per the anesthesiologist.?He was carefully placed in the supine position secured with a safety belt, and a well- padded pneumatic tourniquet was applied around the ight thigh.? A time-out was performed and the patient was properly identified and surgical plan was confirmed.? The patient did receive prophylactic antibiotics for this procedure, which was Clindamycin intravenous.? The right lower extremity was scrubbed, prepped and draped in the usual aseptic fashion. Attention was directed to the right foot and ankle. There was significant l imited subtalar joint range of motion, also a lot of swelling to the lateral ankle and hindfoot. The right foot/ankle/leg were elevated for 3 minutes and the right thigh pneumatic tourniquet was inflated to 300mmHg. Right peroneal tendon debridement and repair: Attention was directed to the peroneal tendons, were a longitudinal skin incision was made over the peroneal tendons of the lateral ankle and hindfoot. Careful dissection was completed through the subcutaneous tissue to the peroneal retinaculum and peroneal tendon sheath. The peroneal retinaculum was torn, and it was noted the peroneal tendons were displaced out of their normal position, they were anterior lateral of their normal position. The peroneal tendon sheath was carefully incised and there was a significant amount of tenosynovitis expressed. The peroneal tendons were visualized. Again, it was noted there was a lot tenosynovitis within the peroneal tendon sheath. It was noted there were 4 longitudinal split tears of the peroneus brevis tendon at the level of the lateral malleolus. The peroneus brevis was yellow, flat with tendinosis and mucoid degeneration. The peroneus brevis tendon was debrided of all the tendinosis and degeneration, also there was a very low laying peroneus brevis muscle belly which was significantly hypertrophied at this level, this low laying muscle belly was debrided decompressing the site. The debrided peroneus brevis tendon and muscle were sent to pathology as specimen. The peroneus longus tendon did have some mild tendinosis, but otherwise it was visualized and noted to he healthy, viable, with no tears, or mucoid degeneration noted. The tendinosis of the peroneus longus tendon was debrided and sent to pathology. The site was flushed out with copious amounts of normal saline solution. The peroneus brevis tendon was tubularized using 3-0 Prolene. The site was again flushed out with copious amounts of normal saline solution. The peroneal tendons were placed back into normal anatomic alignment. The peroneal retinaculums were reconstructed and reapproximated using 2 x Arthrex fiber tacks and 3-0 Prolene. The peroneal tendon sheath was reapproximated using? 3-0 Vicryl. The subcutaneous tissue was reapproximated using 3-0 Vicryl. The skin was reapproximated using 3-0 Nylon. Right subtalar joint arthrodesis:? Attention was directed to the lateral ankle/hindfoot where a curvilinear skin incision was made overlying the posterior subtalar joint. This was done using a 15 blade. Careful dissection was completed down the sinus tarsi. The posterior subtalar joint was encountered and the capsule was incised. The posterior subtalar joint was visualized and noted to have significant degenerative changes, there was degenerative changes with wearing away of cartilage. There was almost no cartilage left. There was significant wearing away of the lateral subtalar joint. The remaining?cartilage was debrided from the posterior subtalar joint surfaces for arthrodesis. The debridement and prep of the joint was done with a curette as well as a powered mini and powered rasp, being sure not to cause osteonecrosis. All cartilage was debrided away to viable bone for good arthrodesis. Bone/cartilage debrided from the subtalar joint was sent to pathology for further evaluation. The site was flushed out with copious amounts of normal saline solution. The joint surfaces were fenestrated using a drill bit on each surface, and the surfaces were also further prepped using a osteotome and mallet to stimulate bleeding and good fusion. A allograft bone wedge and cubes was placed to the fusion site to help align the heel in vertical position when loading the foot. The subtalar joint and heel were placed in neutral to slightly valgus position to the weightbearing surface and was fixated using 2 x 6.5mm cannulated Arthrex compression partially threaded screws using rigid open reduction internal fixation technique, with intra operative fluoroscopy guidance. In order to place the screws, a skin incision was made to the posterior plantar heel and careful blunt dissection was completed down to the bone. Once the screws were placed, there was noted to be good bone to bone compression and contact across the subtalar joint with the prepped subtalar joint surfaces in good alignment. The subtalar joint was very rigid and stable. The screws were in good position. This was confirmed with intra-operative fluoroscopy. The surgical site was flushed out with copious amounts of normal saline solution. The subcutaneous tissue layer were reapproximated using 23-0 Vicryl and the skin was reapproximated using 3-0 Nylon, and heel incision was reapproximated using 3-0 Nylon. Right ankle arthrotomy and debridement: Attention was directed to the anterior aspect of the ankle where a linear skin incision was made lateral to the anterior tibial tendon overlying the joint. This was done using a 15 blade. Careful dissection was completed down through the extensor retinaculum to the j oint capsule. The joint was encountered and the capsule was incised. The ankle joint was visualized and noted to have significant degenerative changes, with osteophytes present which were causing impingement. These were resected using a powered sagittal saw as a well as with a bone cutting rongeur. These were sent to pathology as specimen. Once the osteophytes were removed there was good smooth range of motion to the ankle. This was confirmed with intra-operative fluoroscopy. The surgical site was flushed out with copious amounts of normal saline solution. The extensor retinaculum was reapproximated using 3-0 Vicryl. The subcutaneous tissue layer were reapproximated using 3-0 Vicryl and the skin was reapproximated using 3-0 Nylon. The right ankle and foot were put through range of motion, the subtalar joint were very rigid, otherwise rest of the foot and ankle were gliding normally with no popping, clicking or crepitus. There was negative anterior drawer sign. The foot was in good position clinically, it was very stable. The pneumatic tourniquet was deflated and there was immediate return of warmth and perfusion to the left foot with normal temperature gradient (total tourniquet time was 120 minutes). Of note hemostatis was achieved prior to closure. Capillary fill time was less than three seconds.?There was normal temperature to the foot. A dressing was applied, which consisted of Betadine- soaked adaptic, 4 x 4 gauze, Kerlix, and Huber bandages. A well padded below knee posterior splint was applied to the foot/ankle/leg with heel offloaded. Of note all vital structures, including all vital neurovascular structures and tendon structures were properly identified, protected and retracted as necessary throughout the above operative procedure. The patient was transported from the operating room to the recovery room with vital signs stable and in good condition.? Postoperative orders were placed.?He was admitted for post operative pain control and observation. Right ankle xrays, 3 views, were obtained post op. There was noted to be good alignment of the subtalar joint fusions with good bone to bone contact and screws in place. Ankle was in good position with intact mortise. No evidence of complication. Grafts/Implants Used: 2 x Arthrex cannulated partially threaded screws Complications None
--- NOTE | 2022-06-11 15:12 | PCM.HP.STD ---
HPI - General General Chief Complaint: Post op right foot/ankle HPI Narrative DOYLE MIRZA, is a 77 M who presents post op right foot/ankle surgery on 06/11/2022. Surgery went well, no complications. He is being admitted for monitoring and pain management. He has past medical history of GERD and also takes a water pill daily for blood pressure. [facility] Medical History (Updated 06/11/22 @ 15:[address] Dejuan Rankin, DPElizabeth) Arthritis Back pain CPAP (continuous positive airway pressure) dependence GERD (gastroesophageal reflux disease) History of edema History of pain when walking HTN (hypertension) Non-smoker Wears glasses Home Medications esomeprazole magnesium 20 mg capsule,delayed release (Nexium) 20 mg PO QHS GERD or HEARTBURN 11/16/20 [History Last Taken 11/29/20] hydrochlorothiazide 12.5 mg tablet 12.5 mg PO BREAKFAST WATER PILL, BLOOD PRESSURE 11/16/20 [History Last Taken 06/10/22] Allergy/AdvReac Type Severity Reaction Status Date / Time cefazolin [From [facility]] Allergy Rash Verified 06/06/22 09:06 Surgical History (Updated 06/06/22 @ 09:17 by Kait Orlando) Hx of shoulder surgery Hx of total knee arthroplasty Hx of total shoulder replacement Status post left hip replacement (~11/30/20) Social History Smoking Status: Never smoker ROS Constitutional Constitutional: Denies body ache(s), chills, fever(s) or malaise Vital Signs Vital Signs Vital Signs: 06/11/22 10:27 06/11/22 10:27 Temperature 98.2 F Temperature Source Temporal Pulse Rate 64 Respiratory Rate 18 Respiratory Pattern Normal Blood Pressure 149/82 H Blood Pressure Mean 104 Blood Pressure Source Monitor Blood Pressure Position Semi-Fowlers Blood Pressure Location Left Arm Pulse Ox 99 Oxygen Delivery Method Room Air Weight Weight: 77.474 kg Body Mass Index (BMI) 28.4 Physical Exam Narrative Right foot/ankle with dressing clean, dry and intact. No strikethrough. CFT < 2 seconds to all toes on right foot. No calf pain bilateral. Const alert, oriented x3 and no apparent distress Assessment & Plan Assessment/Plan (1) Encounter for postoperative care: (2) Primary osteoarthritis, right ankle and foot: (3) Peroneal tendinitis, right leg: (4) Pain in right foot: PLAN: Plan s/p right foot/ankle peroneal tendon debridement and repair, subtalar joint arthrodesis, and ankle arthrotomy and debridement on 06/11/2022 - no complications. Admitted for post op mainanagement. No weightbearing right foot. Keep right foot elevated. Keep dressing clean, dry and intact. Pain management: Dilaudid, Oxyir, and Tylenol. Antibiotic Prophylaxis: Clindamycin DVT Prophylaxis: Lovenox 40mg subc once a day starting 06/12/2022.
--- NOTE | 2022-06-11 16:00 | RAD_ITS ---
INDICATION: post op EXAMINATION/TECHNIQUE: X-RAY - RIGHT XR Ankle Min 3 Views 3 VIEWS COMPARISON: Intraoperative fluoroscopic spot films earlier same date. FINDINGS: 3 views show stable appearance and alignment of the ankle status post surgical arthrodesis of the talus and calcaneus with 2 orthopedic screws. There is loss of the subtalar joint. RAD/Ankle min 3 Views IMPRESSION: Status postsurgical arthrodesis of the talocalcaneal junction. Electronically Signed: Silvino Thomas MD at 17:17 EST ,
[2022-06-11] MEDS: HYDROmorphone 1 MG/ML Syringe IV (20:21)
[2022-06-11] MEDS: Pantoprazole Sodium 20 MG Tablet PO (21:09)
[2022-06-11] MEDS: Clindamycin in 0.9% Sod Chlor 600 MG/50 ML BAG 100 MG IV (21:09)
[2022-06-11] MEDS: oxyCODONE 5 MG Tablet PO (23:08)
[2022-06-11] MEDS: Acetaminophen 325 MG Tablet 650 MG PO (23:09)
[2022-06-12] VITALS (7 sets, daily range): BP systolic 125–134; BP diastolic 57–80; PULSE 75–85; RESP 16–18; TEMP 36.8–37.6; O2SAT 92–97
[2022-06-12] MEDS: Acetaminophen 325 MG Tablet 650 MG PO ×2 (05:01→13:54)
[2022-06-12] MEDS: Clindamycin in 0.9% Sod Chlor 600 MG/50 ML BAG 100 MG IV ×3 (05:02→21:05)
[2022-06-12] MEDS: oxyCODONE 5 MG Tablet PO ×4 (05:02→18:20)
[2022-06-12] MEDS: hydroCHLOROthiazide 12.5mg 12.5 MG PO (09:44)
[2022-06-12] MEDS: Enoxaparin 40 MG/0.4 ML Syringe SC (09:44)
--- NOTE | 2022-06-12 10:30 | CASEMGMT ---
RN CM Face to Face with patient for initial transition planning/care coordination assessment. RN CM introduced self and role at [facility]. Patient lying in bed, alert and oriented. Patient willing to participate in assessment and is able to answer all questions appropriately. Care providers, pharmacy, and demographics verified. Patient wishes to discharge home, denies need for home health at this time. Will monitor progress with therapy. Patient states he has no further needs or concerns at this time. CM to follow for discharge planning needs that may arise. PCP: Jose De Jesus Specialists: [place] Preferred Pharmacy: [facility]; [facility] at discharge. Insurance: [facility] Prescription Benefit: none Living Will/HPOA: yes, Tory Sawant LNOK: Living Arrangements: Patient lives with in a single story home with 2 steps and grab bar to enter the home. Patient was independent prior to surgery Transportation: DME/HHC: Ephraim states he has crutches, walker, knee scooter, and cpap at home. No previous HHC. Disposition Plan: Patient to discharge home with family support and follow-up plans in place. Haleigh BRITO, RN, CM
--- NOTE | 2022-06-12 13:12 | PCM.PROGNOTE ---
Subjective Subjective Patient was seen today for follow up on right foot/ankle. He relates he feels pain is not fully controlled. He points to the surgical site of pain when it is present. He has no fever, chills or vomiting, he had some nausea this morning but not now. Objective Data Objective Data Vital Signs: Vital Signs Temp Pulse Resp BP Pulse Ox O2 Del Method O2 Flow Rate 98.3 F 83 17 126/80 H 92 Room Air 3 06/12/22 09:54 06/12/22 09:54 06/12/22 09:54 06/12/22 09:54 06/12/22 09:54 06/12/22 09:54 06/12/22 09:54 Oxygen Flow Rate (L/min) 3 Oxygen Delivery Method Room Air Weight: 77.474 kg Body Mass Index (BMI) 28.4 Intake & Output: Intake and Output for Last 24 Hours 06/10/22 06/11/22 06/12/22 23:59 23:59 23:59 Intake Total 1300 / 1300 290 / 290 Output Total 600 / 600 Balance 1300 / 1000 -310 / -310 Radiography Diagnostic Testing: Radiology Impression Ankle X-Ray 06/11/22 12:07 IMPRESSION: Please see operative note for details. Electronically Signed: Tavo Drake MD at 7:23 EST , Ankle X-Ray 06/11/22 16:00 IMPRESSION: Status postsurgical arthrodesis of the talocalcaneal junction. Electronically Signed: Silvino Thomas MD at 17:17 EST , Physical Exam Narrative Right foot/ankle with dressing clean, dry and intact. No strikethrough. CFT < 2 seconds to all toes on right foot. No calf pain bilateral. Const alert, oriented x3 and no apparent distress Assessment & Plan Assessment/Plan (1) Encounter for postoperative care: (2) Primary osteoarthritis, right ankle and foot: (3) Peroneal tendinitis, right leg: (4) Pain in right foot: PLAN: Plan s/p right foot/ankle peroneal tendon debridement and repair, subtalar joint arthrodesis, and ankle arthrotomy and debridement on 06/11/2022 - no complications. Admitted for post op management. Given extent of surgery he needs to continue to stay at hospital for pain management and IV antibiotic prophylaxis. No weightbearing right foot. Keep right foot elevated. Keep dressing clean, dry and intact. Pain management: Dilaudid, Oxyir, and Tylenol. Will increase frequency of Dilaudid to every 3 hours prn pain. Antibiotic Prophylaxis: Clindamycin 600mg IV q 8 hours DVT Prophylaxis: Lovenox 40mg subc once a day.
[2022-06-12] MEDS: 0.9% Saline Lock 10 ML Syringe IV (21:05)
[2022-06-12] MEDS: Pantoprazole Sodium 20 MG Tablet PO (21:05)
[2022-06-13] VITALS (7 sets, daily range): BP systolic 121–139; BP diastolic 71–99; PULSE 75–82; RESP 16–18; TEMP 36.6–37.2; O2SAT 92–95
[2022-06-13] MEDS: Acetaminophen 325 MG Tablet 650 MG PO ×2 (00:02→22:53)
[2022-06-13] MEDS: oxyCODONE 5 MG Tablet PO ×3 (00:02→09:12)
[2022-06-13] MEDS: Clindamycin in 0.9% Sod Chlor 600 MG/50 ML BAG 100 MG IV ×2 (05:13→14:36)
[2022-06-13 06:56] LABS: Absolute Lymphocyte Count 0.54 X10^3/uL (0.83-4.51); Absolute Neutrophil Count 6.4 X10^3/uL (2.0-7.7); Basophil# 0.01 X10^3/uL; Basophil% 0.1 % (0-1); Differential Indicated SCAN CRITERIA MET; Eosinophil# 0.06 X10^3/uL; Eosinophils% 0.8 % (0-5); Hematocrit 38.6 % (40-54); Hemoglobin 12.6 g/dL (13.0-16.5); Lymphocyte # 0.54 X10^3/ul (0.83-4.51); Lymphocyte % 6.9 % (19-41); Mean Corp Hgb Conc 32.6 g/dL (32-36); Mean Corpuscular Hgb 30.6 pg (27.0-32.0); Mean Corpuscular Volume 93.7 fL (80-94); Mean Platelet Vol. 10.1 fl (6.2-12.0); Monocyte# 0.84 X10^3/uL; Monocyte% 10.7 % (0-10); NRBC Flagged by Analyzer 0 % (0-5); Neutrophil # 6.36 X10^3/uL (2.7-7.7); POSITIVE DIFFERENTIAL YES; Platelet Count 166 K/mm3 (150-450); RBC Distribution Width CV 12.8 % (11.6-14.6); RBC Distribution Width SD 43.9 fl (35.1-43.9); Red Blood Count 4.12 M/mm3 (4.6-6.2); White Blood Count 7.9 K/mm3 (4.4-11.0)
[2022-06-13 07:27] LABS: ALB/GLOB Ratio 0.8 RATIO (0.9-2.4); AST(SGOT) 15 U/L (15-37); Alanine Aminotransfer ALT/SGPT 21 U/L (16-61); Albumin, Serum 2.9 g/dL (3.2-5.0); Alkaline Phosphatase 69 U/L (45-117); Anion Gap 4 (5-15); BUN 15 mg/dL (7-18); BUN/Creat Ratio 12.2 RATIO (10-20); Calcium,Total 8.8 mg/dL (8.5-10.1); Chloride 104 mmol/L (98-107); Creatinine, Serum 1.23 mg/dL (0.70-1.30); EST Glomerular Filtration Rate 60 mL/min (>60); Est Glom Filt Rate - Afr Amer 73 mL/min (>60); Estimated Creatinine Clearance 43.06 ml/min; Globulin 3.8 g/dL (2.2-4.2); Glucose 125 mg/dL (74-106); Potassium 3.9 mmol/L (3.5-5.1); Protein, Total 6.7 g/dL (6.4-8.2); Sodium Level 137 mmol/L (136-145)
[2022-06-13 08:01] LABS: Vitamin D,25 Hydroxy 24.6 ng/mL
[2022-06-13] MEDS: Enoxaparin 40 MG/0.4 ML Syringe SC (09:09)
[2022-06-13] MEDS: hydroCHLOROthiazide 12.5mg 12.5 MG PO (09:09)
[2022-06-13] MEDS: oxyCODONE 5 MG Tablet 10 MG PO ×2 (12:10→22:52)
[2022-06-13] MEDS: Gabapentin 300 MG Capsule PO ×2 (15:29→21:48)
--- NOTE | 2022-06-13 15:45 | CASEMGMT ---
Social Work? SW in to pt room to verify Advanced Directives. Pt confirmed has HCPOA/LW. Pt named spouse,?Tory Sawant , as agent. Pt made aware these documents are not on file and that pt can bring a copy in and drop off at Medical records in future if willing to do so. Pt voiced understanding.?? KARLENE Dove?
--- NOTE | 2022-06-13 18:07 | PN_ITS ---
Subjective Subjective Patient was seen today for follow up on right foot. He has no fever, chills, nausea or vomiting. He relates pain was bad today, but dose of gabapentin really helped so far. Objective Data Objective Data Vital Signs: Vital Signs Temp Pulse Resp BP Pulse Ox O2 Del Method O2 Flow Rate 98 F 82 18 139/77 H 95 Room Air 3 06/13/22 14:44 06/13/22 14:44 06/13/22 15:19 06/13/22 14:44 06/13/22 14:44 06/13/22 15:19 06/13/22 11:00 Oxygen Flow Rate (L/min) 3 Oxygen Delivery Method Room Air Weight: 77.474 kg Body Mass Index (BMI) 28.4 Intake & Output: Intake and Output for Last 24 Hours 06/11/22 06/12/22 06/13/22 23:59 23:59 23:59 Intake Total 1300 / 1300 770.75 / 770.75 100 / 100 Output Total 600 / 1000 700 / 700 Balance 1300 / 1000 170.75 / -229.25 -600 / -600 Lab / Micro Data Result Diagrams: 06/13/22 06:15 06/13/22 06:15 Labs: Laboratory Results - last 24 hr 06/13/22 06:15: WBC 7.9, RBC 4.12 L, Hgb 12.6 L, Hct 38.6 L, MCV 93.7, MCH 30.6, MCHC 32.6, RDW Std Deviation 43.9, RDW Coeff of Erinn 12.8, Plt Count 166, MPV 10.1, Immature Gran % (Auto) 0.500, Neut % (Auto) 81.0 H, Lymph % (Auto) 6.9 L, Randolph % (Auto) 10.7 H, Eos % (Auto) 0.8, Baso % (Auto) 0.1, Absolute Neuts (auto) 6.4, Absolute Lymphs (auto) 0.54 L, Nucleated RBC % 0 06/13/22 06:15: Sodium 137, Potassium 3.9, Chloride 104, Carbon Dioxide 29.0, Anion Gap 4 L, BUN 15, Creatinine 1.23, Estim Creat Clear Calc 43.06, Est GFR (MDRD) Af Amer 73, Est GFR (MDRD) Non-Af 60, BUN/Creatinine Ratio 12.2, Glucose 125 H, Calcium 8.8, Total Bilirubin 1.30 H, AST 15, ALT 21, Alkaline Phosphatase 69, Total Protein 6.7, Albumin 2.9 L, Globulin 3.8, Albumin/Globulin Ratio 0.8 L 06/13/22 06:15: Vitamin D 25-Hydroxy 24.6 Physical Exam Narrative Right foot/ankle with dressing clean, dry and intact. No strikethrough. CFT < 2 seconds to all toes on right foot. No calf pain bilateral. Const alert, oriented x3 and no apparent distress Assessment & Plan Assessment/Plan (1) Encounter for postoperative care: (2) Primary osteoarthritis, right ankle and foot: (3) Peroneal tendinitis, right leg: (4) Pain in right foot: PLAN: Plan s/p right foot/ankle peroneal tendon debridement and repair, subtalar joint arthrodesis, and ankle arthrotomy and debridement on 06/11/2022 - no complications. Admitted for post op management. Given extent of surgery he needs to continue to stay at hospital for pain management - his pain is not yet controlled enough for discharge. Goal is for discharge tomorrow. No weightbearing right foot. Keep right foot elevated. Keep dressing clean, dry and intact. Pain management: Dilaudid, Oxyir, and Tylenol. As well as added Gabapentin. Antibiotic Prophylaxis: Completed course of clindamycin 600mg IV q 8 hours DVT Prophylaxis: Lovenox 40mg subc once a day.
[2022-06-13] MEDS: Pantoprazole Sodium 20 MG Tablet PO (21:48)
[2022-06-14 04:00] VITALS: BP 126/76; PULSE 61; RESP 18; TEMP 36.6; O2SAT 93
[2022-06-14 04:02] VITALS: BP 126/76; PULSE 61; RESP 18; TEMP 36.6; O2SAT 93
[2022-06-14] MEDS: Gabapentin 300 MG Capsule PO ×2 (04:09→10:02)
[2022-06-14 08:47] VITALS: BP 122/76; PULSE 72; RESP 18; TEMP 37.1; O2SAT 95
[2022-06-14] MEDS: hydroCHLOROthiazide 12.5mg 12.5 MG PO (10:02)
[2022-06-14] MEDS: oxyCODONE 5 MG Tablet 10 MG PO (10:02)
[2022-06-14] MEDS: Enoxaparin 40 MG/0.4 ML Syringe SC (10:02)
[2022-06-14] MEDS: Cholecalciferol (Vit D3) 125 MCG CAPSULE (5,000 UNITS) PO (10:08)
[2022-06-14 11:00] VITALS: BP 122/76; PULSE 72; RESP 18; TEMP 37.1; O2SAT 95
--- NOTE | 2022-06-14 13:15 | VDLE_ITS ---
Reason For Study: pain RIGHT GSV is normal. CFV is compressible, spontaneous, phasic, competent and demonstrates normal augmentation. FV is compressible, spontaneous, phasic, competent and demonstrates normal augmentation. POP V is compressible, spontaneous, phasic, competent and demonstrates normal augmentation. T/P Trunk is compressible. PTV is compressible. RT PerV is compressible. Procedure This is a venous duplex using B-mode, color flow and spectral Doppler. Exam performed portable in patient room. The exam was abbreviated due to the COVID 19 protocol. The exam was diagnostic. Limited views of calf veins due to splint. A preliminary report was called and/or faxed to Dr. Rankin. VL/Venous Duplex US, Unilateral Interpretation Summary Deep veins of the right lower extremity are patent and compressible segmentally . There is no evidence of right lower extremity deep vein thrombosis. The right great sapheno us vein appears patent and compressible segmentally. Limited study due to splint placement Ordering Physician: Dejuan Rankin Performed By: Henry Livingston RVT
--- NOTE | 2022-06-14 13:23 | DCINST_ITS ---
Discharge Instructions Activity Discharge Activity: Use Walker Weight Bearing Status: No weight bearing (No weightbearing right foot.) Keep extremity elevated above heart level: Right Leg (Keep right foot elevated for at least 50 minutes of every hour with heel offloaded.) Dressing / Incision Call your doctor if your incision/area has: Continuous Slow Oozing, Sudden Increased Bleeding, Increased Pain/ Swelling, Increased Redness and Foul Smelling Discharge Call your doctor if you observe: Fever of 101 or Higher, Shortness of breath, Chest pain, Increased palpitations (irregular heartbeat), Calf discomfort and Uncontrolled pain Change Dressing in: do not change dressing Remove Dressing in: do not remove dressing Cleanse incision/area with: Keep Dressing Clean & Dry Follow Up Care Please Follow Up With: Dejuan Rankin DPM When: 1 week, sooner if needed. Test Results: Test results from this visit will be discussed in further detail at your follow- up appointment, if applicable. Discharge Plan Admission Admit Date/Time: 06/11/22 15:17 Attending Provider: Dejuan Rankin Primary Care Provider: Jessika Dela Cruz Discharge Orders/Prescriptions Prescriptions: New cholecalciferol (vitamin D3) 125 mcg (5,000 unit) Capsule 125 mcg PO DAILY 30 Days Qty: 30 0RF Eliquis 2.5 mg tablet 2.5 mg PO BID Qty: 60 0RF gabapentin 300 mg capsule 300 mg PO Q8H PRN (Reason: nerve pain) Qty: 21 0RF hydrocodone-acetaminophen 5-325 mg tablet 1 tab PO Q6H PRN (Reason: pain) 5 Days Qty: 20 0RF Continued esomeprazole magnesium [Nexium] 20 MG capsule 20 mg PO QHS hydrochlorothiazide 6.25 MG tablet 12.5 mg PO BREAKFAST Label Comments: TAKE 1 TABLET BY MOUTH EVERY MORNING Referrals / Follow Up: Jessika Dela Cruz PA [Primary Care Provider] - Disposition Disposition (needs filled in before D/C Order can be placed): Home, Self Care
--- NOTE | 2022-06-14 13:29 | PCM.DC.SUM ---
Providers Date of Admission: 06/11/22 Primary Care Physician: SONIA Torres Reason For Visit: RT FUSION SUBTALOR JOINT ARTHODESIS Diagnosis Discharge Diagnosis (1) Encounter for postoperative care: Status: Acute Code(s): Z48.89 - Encounter for other specified surgical aftercare (2) Primary osteoarthritis, right ankle and foot: Status: Acute Code(s): M19.071 - Primary osteoarthritis, right ankle and foot (3) Peroneal tendinitis, right leg: Status: Acute Code(s): M76.71 - Peroneal tendinitis, right leg (4) Pain in right foot: Status: Acute Code(s): M79.671 - Pain in right foot Plan s/p right foot/ankle peroneal tendon debridement and repair, subtalar joint arthrodesis, and ankle arthrotomy and debridement on 06/11/2022 - no complications. Admitted for post op management. Given extent of surgery he needs to continue to stay at hospital for pain management - his pain is not yet controlled enough for discharge. Goal is for discharge tomorrow. No weightbearing right foot. Keep right foot elevated. Keep dressing clean, dry and intact. Pain management: Dilaudid, Oxyir, and Tylenol. As well as added Gabapentin. Antibiotic Prophylaxis: Completed course of clindamycin 600mg IV q 8 hours DVT Prophylaxis: Lovenox 40mg subc once a day. Medications at Discharge Home Medications esomeprazole magnesium 20 mg capsule,delayed release (Nexium) 20 mg PO QHS GERD or HEARTBURN 11/16/20 hydrochlorothiazide 12.5 mg tablet 12.5 mg PO BREAKFAST WATER PILL, BLOOD PRESSURE 11/16/20 apixaban 2.5 mg tablet (Eliquis) 2.5 mg PO BID #60 tabs 06/14/22 cholecalciferol (vitamin D3) 125 mcg (5,000 unit) capsule 125 mcg PO DAILY 30 days #30 caps 06/14/22 gabapentin 300 mg capsule 300 mg PO Q8H PRN nerve pain #21 caps 06/14/22 hydrocodone-acetaminophen 5-325mg 5mg-325mg 1 tab PO Q6H PRN pain 5 days #20 tabs 06/14/22 Hospital Course Summary of Care Provided Hospital Course: Patient underwent right foot/ankle surgery on 06/11/2022 - he was admitted for post op management- pain control and IV antibiotics. He is doing well at this time. He will be discharged. Physical Exam Narrative Right foot/ankle - dressing removed - incisions well coapted, no cellulitis, no maloder, no necrosis, no blistering, no crepitus, no fluctuance, no visible abcess, there is ecchymosis localized to the area c/w normal post op findings. He does relate to some right calf pain with calf squeeze, there is some edema to the foot/ankle c/w normal post op course, no leg edema, CFT < seconds to the foot and no evidence of ischemia tot he foot or ankle, no evidence of compartment syndrome, patient is able to move foot and ankle as well as toes. Const alert, oriented x3 and no apparent distress Weight / BMI Weight Weight: 77.474 kg Body Mass Index (BMI) 28.4 ABG / Lab / Microbiology Data Result Diagrams: 06/13/22 06:15 06/13/22 06:15 D/C Instructions Weight Bearing Status: No weight bearing (No weightbearing right foot.) Keep extremity elevated above heart level: Right Leg (Keep right foot elevated for at least 50 minutes of every hour with heel offloaded.) Call your doctor if your incision/area has: Continuous Slow Oozing, Sudden Increased Bleeding, Increased Pain/ Swelling, Increased Redness and Foul Smelling Discharge Call your doctor if you observe: Fever of 101 or Higher, Shortness of breath, Chest pain, Increased palpitations (irregular heartbeat), Calf discomfort and Uncontrolled pain Cleanse incision/area with: Keep Dressing Clean & Dry Please Follow Up With: Dejuan Rankin DPM When: 1 week, sooner if needed. Meaningful Use Info Meaningful Use Diagnoses (Choose all that apply): None applicable Discharge Plan Admission Admit Date/Time: 06/11/22 15:17 Attending Provider: Dejuan Rankin Primary Care Provider: Jessika Dela Cruz Discharge Orders/Prescriptions Prescriptions: New cholecalciferol (vitamin D3) 125 mcg (5,000 unit) Capsule 125 mcg PO DAILY 30 Days Qty: 30 0RF Eliquis 2.5 mg tablet 2.5 mg PO BID Qty: 60 0RF gabapentin 300 mg capsule 300 mg PO Q8H PRN (Reason: nerve pain) Qty: 21 0RF hydrocodone-acetaminophen 5-325 mg tablet 1 tab PO Q6H PRN (Reason: pain) 5 Days Qty: 20 0RF Continued esomeprazole magnesium [Nexium] 20 MG capsule 20 mg PO QHS hydrochlorothiazide 6.25 MG tablet 12.5 mg PO BREAKFAST Label Comments: TAKE 1 TABLET BY MOUTH EVERY MORNING Referrals / Follow Up: Jessika Dela Cruz PA [Primary Care Provider] - Disposition Disposition (needs filled in before D/C Order can be placed): Home, Self Care
--- NOTE | 2022-06-14 13:35 | PN_ITS ---
Subjective Subjective Patient was seen today for follow up on right foot/ankle. He relates pain is much less and feels ready to go home today. He has no complaints of fever, chills, nausea or vomiting. Objective Data Objective Data Vital Signs: Vital Signs Temp Pulse Resp BP Pulse Ox O2 Del Method O2 Flow Rate 98.7 F 72 18 122/76 H 95 Room Air 3 06/14/22 11:00 06/14/22 11:00 06/14/22 11:00 06/14/22 11:00 06/14/22 11:00 06/14/22 11:00 06/14/22 11:00 Oxygen Flow Rate (L/min) 3 Oxygen Delivery Method Room Air Weight: 77.474 kg Body Mass Index (BMI) 28.4 Intake & Output: Intake and Output for Last 24 Hours 06/12/22 06/13/22 06/14/22 23:59 23:59 23:59 Intake Total 770.75 / 770.75 100 / 100 950 / 950 Output Total 600 / 1000 700 / 700 500 / 500 Balance 170.75 / -229.25 -600 / -600 450 / 450 Lab / Micro Data Result Diagrams: 06/13/22 06:15 06/13/22 06:15 Physical Exam Narrative Right foot/ankle - dressing removed - incisions well coapted, no cellulitis, no maloder, no necrosis, no blistering, no crepitus, no fluctuance, no visible abcess, there is ecchymosis localized to the area c/w normal post op findings. He does relate to some right calf pain with calf squeeze, there is some edema to the foot/ankle c/w normal post op course, no leg edema, CFT < seconds to the foot and no evidence of ischemia tot he foot or ankle, no evidence of compartment syndrome, patient is able to move foot and ankle as well as toes. Const alert, oriented x3 and no apparent distress Assessment & Plan Assessment/Plan (1) Encounter for postoperative care: (2) Primary osteoarthritis, right ankle and foot: (3) Peroneal tendinitis, right leg: (4) Pain in right foot: PLAN: Plan s/p right foot/ankle peroneal tendon debridement and repair, subtalar joint arthrodesis, and ankle arthrotomy and debridement on 06/11/2022 - no complications. Admitted for post op management. Pain controlled and ok to d/c - but patient noted to have some right calf pain with right calf squeeze so a jackie ous doppler was ordered - and was negative for dvt. No weightbearing right foot. Keep right foot elevated. Keep dressing clean, dry and intact. Pain management: Gabapentin & [place] for d/c. Antibiotic Prophylaxis: Completed course of clindamycin 600mg IV q 8 hours DVT Prophylaxis: Lovenox 40mg subc today, and switch to Eliquis 2.5mg BID tomorrow morning.
--- NOTE | 2022-06-14 14:07 | CASEMGMT ---
TC to [facility] pharmacy for cost of eliquis, savings card applied, cost is 0. RN CM into pt room, pt states he feels ready to go home. He is aware to not remove dressing, aware of eliquis cost and feels he can maintain his non wt bearing status. Pt denies homegoing needs.
[2022-06-14 14:50] VITALS: BP 128/70; PULSE 58; RESP 16; TEMP 36.8; O2SAT 99
== END 2022-06-14 14:00 | disposition home or self-care (01) | DRG 941 ==
LOC: SDC 06-12 14:04 → MS3 06-12 14:04
PROVIDERS: Admitting Provider Podiatrist; Referring Provider Podiatrist; Visit Provider Podiatrist
PROC: 0SGH0KZ Fusion of Right Tarsal Joint with Nonautologous Tissue Substitute, Open Approach (ICD-10-PCS; CPT 28725; principal; 2022-06-11 11:45)
DX: G89.18 Other acute postprocedural pain (principal); M19.071 Primary osteoarthritis, right ankle and foot; M76.71 Peroneal tendinitis, right leg; M25.771 Osteophyte, right ankle; Y83.8 Other surgical procedures as the cause of abnormal reaction of the patient, or of later complication, without mention of misadventure at the time of the procedure; Y92.239 Unspecified place in hospital as the place of occurrence of the external cause; G47.30 Sleep apnea, unspecified; I10 Essential (primary) hypertension; K21.9 Gastro-esophageal reflux disease without esophagitis; Z79.899 Other long term (current) drug therapy; Z96.642 Presence of left artificial hip joint; Z96.612 Presence of left artificial shoulder joint; Z96.653 Presence of artificial knee joint, bilateral; M79.671 Pain in right foot
CPT/HCPCS: 36415; 73610; 76000; 80053; 82306; 85025; 88304; 88311; 93971; 97162; 97166; 99251; C1713; J7120; A4216; G0463; J2405

== ENCOUNTER 2024-03-02 06:47 | Observation (INO) | payer MEDICARE, SELFPAY ==
--- NOTE | 2024-02-10 07:40 | EKG12_ITS ---
Test Reason : PRE OP Blood Pressure : / mmHG Vent. Rate : 060 BPM Atrial Rate : 060 BPM P-R Int : 208 ms QRS Dur : 094 ms QT Int : 390 ms P-R-T Axes : 072 059 066 degrees QTc Int : 390 ms Normal sinus rhythm Normal ECG Confirmed by LIVIER FAGAN, JOSÉ MIGUEL ([id number]), news videotape editor MEGHAN WOODWARD ([id number]) on 02/12/2024 9:46:06 AM Referred By: Sebas Duncan Confirmed By:JESUS MANUEL MAIER MD
[2024-02-10 08:27] LABS: Absolute Lymphocyte Count 0.93 X10^3/uL (0.83-4.51); Absolute Neutrophil Count 3.1 X10^3/uL (2.0-7.7); Basophil# 0.04 X10^3/uL; Basophil% 0.8 % (0-1); Eosinophil# 0.19 X10^3/uL; Hematocrit 43.8 % (40-54); Hemoglobin 14.5 g/dL (13.0-16.5); Lymphocyte # 0.93 X10^3/ul (0.83-4.51); Lymphocyte % 19.3 % (19-41); Mean Corp Hgb Conc 33.1 g/dL (32-36); Mean Corpuscular Hgb 30.8 pg (27.0-32.0); Monocyte# 0.56 X10^3/uL; Monocyte% 11.6 % (0-10); NRBC Flagged by Analyzer 0 % (0-5); Neutrophil # 3.07 X10^3/uL (2.7-7.7); Neutrophil % 63.9 % (47-70); Platelet Count 185 K/mm3 (150-450); RBC Distribution Width CV 12.9 % (11.6-14.6); RBC Distribution Width SD 43.8 fl (35.1-43.9); Red Blood Count 4.71 M/mm3 (4.6-6.2); White Blood Count 4.8 K/mm3 (4.4-11.0)
[2024-02-10 08:51] LABS: Albumin, Serum 3.6 g/dL (3.2-5.0); Anion Gap 4 (5-15); BUN 28 mg/dL (7-18); BUN/Creat Ratio 21.2 RATIO (10-20); Calcium,Total 9.3 mg/dL (8.5-10.1); Chloride 108 mmol/L (98-107); Creatinine, Serum 1.32 mg/dL (0.70-1.30); EST Glomerular Filtration Rate 56 mL/min (>60); Est Glom Filt Rate - Afr Amer 67 mL/min (>60); Glucose 106 mg/dL (74-106); Potassium 4.5 mmol/L (3.5-5.1); Sodium Level 141 mmol/L (136-145)
--- NOTE | 2024-02-25 21:46 | PCM.HP.BLA ---
History and Physical History and Physical Patient Name: Claudy Sawant : 1945From:? ARIEL SUE PA-C DATE OF PRE-OPERATIVE EXAM: 02/24/2024 DATE OF SURGERY:? 03/02/2024 SCHEDULED PROCEDURE:? Direct anterior right total hip arthroplasty HISTORY OF PRESENT ILLNESS: Preoperative history and physical exam was performed on February 24, 2024.? This is a 79-year-old male who is been having ongoing pain for over 1 year with his right hip.? Patient has had a previous left total hip arthroplasty by Dr. Sebas Duncan on November 30, 2020.? He is doing well from that procedure.? Patient's pain can reach 7/10 with activities.? His pain has been constant.? Pain is increased with going up and down stairs and sitting.? He has difficulty with getting dressed and putting on his socks and shoes.? He has start up pain.? Pain is located in the lower back, neck region and groin.? Patient states walking on hard surfaces including concrete makes his hip pain worse.? He has tried home exercises without relief, oral medications including meloxicam and Tylenol.? He does report having a limp due to his hip pain.? Patient denies past history of surgery on the right hip.? After failing conservative measures and discussing all treatment options was Dr. Sebas Duncan, the patient does wish to proceed with a direct anterior right total hip arthroplasty.? Patient has obtain surgical clearance from the primary care provider Jessika Dela Cruz.? Patient has medical history pertinent for hypertension, sleep apnea with use of CPAP, hypercholesterolemia, gastroesophageal reflux disease.? Patient denies past history of DVT or pulmonary embolism.? Denies any recent chest pain, shortness of breath, fevers chills or recent infections. REVIEW OF SYSTEMS: Review Of Systems: Constitutional: Denies change in appetite, fever and weight change. Cardiovasular: Denies chest pain, heart murmur and irregular heartbeat. Respiratory: Denies cough, pneumonia, shortness of breath, tuberculosis and wheezing. Gastrointestinal: Reports heartburn, but denies constipation, diarrhea, nausea, rectal itching, bloody stools and vomiting. Genitourinary: Denies incontinence. Musculoskeletal: Admits to bilateral ankle pain during ambulation, right worse than left Skin: Denies Raynaud's, history of shingles and tattoo. Neurological: Denies ambulatory dysfunction, dizziness, numbness/tingling and tremor. Psychiatric: Denies anxiety, insomnia and stress. Hematologic/Lymphatic: Denies anemia, bleeding/bruising tendency and past transfusion. Reviewed, no changes. PAST MEDICAL HISTORY: Advance Care Plan: Other Directive, POA Effective Date: 12/25/2018 Other Directive, LIVING WILL Effective Date: 12/25/2018 Past Medical History: Medical Problems: Arthritis, Sleep Apnea, High Blood Pressure, Hypercholesterolemia, Acid Reflux Accidents: Fracture - RT wrist Surgical Hx: Shoulder Arthroscopy Lt - Madiha Shoulder Arthroscopy Rt - Madiha Knee Replacement LT - Madiha Knee Replacement RT - Madiha Left Reverse Tsa - (07/14/2019) BY [facility] Hip Replacement LT - (11/30/2020) [facility] Anesthesia Complications: None Assistive Devices: Glasses, Cpap Reviewed, no changes. SOCIAL HISTORY: Social History: Marital: .Occupation: Retired.Work Status: Retired.Hand Dominance: Right-handed. Personal Habits:? Cigarette Use: Never Smoked Cigarettes.Smokeless Tobacco: Never Used Smokeless Tobacco.E-Cigarette Use: Former Smoker.Alcohol: Occasionally.Drug Use: Denies Use.Enjoy Exercising: Daily. Reviewed, no changes. VITALS: Ht: 65 Wt: 178lb Wt [id number] BMI: 29.6 BP: 142/76 Pulse: 65 Resp: 17 T: 97.5 T: 36.4C Pain Level: 5 O2SatR: 97 ALLERGIES: Ancef - Rash Cefazolin MEDICATIONS: Meloxicam 15 mg 1 by mouth every day, Nexium? 20 mg po daily as needed, Ibuprofen 200 200 mg 1-2po bid prn, Tylenol Extra Strength 500 mg 2 by mouth every 8 hours prn, Lisinopril 10 mg take 1 (one) tablet daily in the evening, Hydrochlorothiazide 12.5 mg take 1 (one) tablet daily in the morning PRE-OP EXAM: General appearance:NORMAL? Other: Eyes: Conjunctivae and lids: NORMAL? Pupils: ERR Ears, Nose, Mouth, and Throat: NORMAL? Other: Inspection of lips, teeth and gums: NORMAL?? Other: Neck: Examination of neck: no masses noted. Respiratory: Assessment of respiratory effort: NORMAL?? Other: ? Auscultation of lungs: clear to auscultation no wheezes, rhonchi or rales. Cardiovascular:? Auscultation of heart: regular rate and rhythm, no murmurs, gallops or rubs. PHYSICAL EXAMINATION: Patient does walk with an antalgic gait.? Patient has tenderness to palpation of the right lateral hip at the greater trochanteric region.? Hip range of motion: Flexion 90, internal rotation 15, external rotation 35.? He has pain associated with range of motion.? Sensation intact to light touch. 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 Right hip osteoarthritis 2.? Presence of left total hip arthroplasty November 30, 2020 3.? Hypertension 4.? Sleep apnea with use of CPAP 5.? Hypercholesterolemia 6.? Gastroesophageal reflux disease 7.? Overweight with BMI 29.6 PLAN: Dr. Sebas Duncan did discuss and review with the patient all treatment options including surgical versus nonsurgical options.? Patient does wish to proceed with the above-stated procedure.? Potential risks, benefits, and complications of the procedure were discussed in detail including but not limited to , infection, nerve and blood vessel damage, persistent pain, numbness, tingling, paresthesias, blood clot, pulmonary embolism, and requirement for possible further surgery.? The patient expressed full understanding and has no further questions for the doctor.? Patient does agree to proceed with the above-stated procedure and has signed the surgery consent form. POST-OP MEDICATION PLAN: Pain Medications: Postoperative pain regimen will be initiated by Dr. Sebas Duncan in the hospital.? Patient does have a walker that he will bring to the hospital for postoperative use.? Patient does have elevated kidney function and decreased GFR without official diagnosis of chronic kidney disease.? We are going to avoid postoperative nonsteroidal anti-inflammatories.? I would defer future use to the primary care provider.? Also discussed was Dr. Sebas Duncan we are going to proceed with Ancef perioperatively as his allergy is rash.? Patient will continue with the nutrition protocol. DVT Prophylaxis:? Aspirin 81 mg twice daily for 4 weeks postoperatively.? Denies past history of DVT or pulmonary embolism This dictation was created using voice recognition software. Phonetic and/or grammatical errors may exist. ___? I have re-examined the patient.? There are no clinical changes since date of exam. ___? See progress notes for changes. ___? Dictated on admission Date: ? Time: Signature:
[2024-03-02] VITALS (17 sets, daily range): BP systolic 75–148; BP diastolic 42–86; PULSE 60–89; RESP 15–18; TEMP 35.9–36.8; O2SAT 93–100; BMI 29.0
[2024-03-02] MEDS: Acetaminophen 500 MG Tablet 1000 MG PO ×3 (07:06→21:36)
[2024-03-02] MEDS: Gabapentin 600 MG Tablet PO (07:06)
[2024-03-02] MEDS: Lactated Ringers 1,000 ML 999 ML IV ×2 (07:12→10:16)
[2024-03-02] MEDS: Magnesium 1 GM over 15 mins IV (07:13)
[2024-03-02] MEDS: Lactated Ringers 1,000 ML 75 ML IV (07:13)
--- NOTE | 2024-03-02 07:35 | PRE.ANES_ITS ---
ASA Classification* ASA Classification ASA Classification: 2 Assessment & Plan Anesthesia* Anesthesia Assessment Anesthesia Assessment: Discussed sedation and/or anesthesia options, risks, benefits, and alternatives with patient/parents/legal guardian/POA. Questions invited. The patient/parents/legal guardian/POA seems to understand and agrees to proceed with anesthesia plan. Reviewed the physical assessment, medical history, allergy history and patient home medications list prior to surgery/procedure/anesthetic and documented any changes. Performed airway and anesthesia risk assessments. Anesthesia Type Anesthesia Type: Spinal (*see written pre anesthesia record for full assessment) Anesthesia Focused Assessment* Temperature: 97.8 F Pulse Rate: 68 Blood Pressure: 143/63 Respiratory Rate: 18 Pulse Ox: 99 Airway Assessment Mouth opens: >3 cm Mallampati Score: II Focused Labs Anesthesia Preop lab: CBC WBC 4.8 K/mm3 (4.4-11.0) 02/10/24 07:40 RBC 4.71 M/mm3 (4.6-6.2) 02/10/24 07:40 Hgb 14.5 g/dL (13.0-16.5) 02/10/24 07:40 Hct 43.8 % (40-54) 02/10/24 07:40 Plt Count 185 K/mm3 (150-450) 02/10/24 07:40 CHEMISTRY Potassium 4.5 mmol/L (3.5-5.1) 02/10/24 07:40 Sodium 141 mmol/L (136-145) 02/10/24 07:40 Magnesium 2.0 mg/dL (1.6-2.6) 02/10/24 07:40 BUN 28 mg/dL (7-18) H 02/10/24 07:40 Creatinine 1.32 mg/dL (0.70-1.30) H 02/10/24 07:40 Glucose 106 mg/dL (74-106) 02/10/24 07:40 POC Glucose 114 mg/dL (70-110) H 11/30/20 13:31 COAG Pre-Assessment Diagnosis/Proposed Procedure Planned Operative Procedure(s): DIRECT ANTERIOR RIGHT TOTAL HIP ARTHROPLASTY Anesthesia History Anesthesia History - wholesale account manager: Anesthesia History - wholesale account manager Hx Hospitalization No 02/07/24 09:14 Any Problems With Anesthesia No 02/07/24 09:14 Cholinesterase deficiency No 02/07/24 09:14 You/Your Family Experience No 02/07/24 09:14 fever (hyperthermia) with Relationship Recent Exposure to Contagious No 03/02/24 06:59 Disease Does patient have nerve No 02/07/24 09:14 stimulator Patient instructed to have device shut off --Does patient have Pacemaker No 03/02/24 07:01 or ICD? When Was Last Pacemaker Check QUESTION #4 FULL TEXT: You/Your Family Experience fever (hyperthermia) with Anesthesia Last Oral Intake Last Oral intake: Last Oral Intake NPO since 05:30 03/02/24 07:01 Meds taken in AM with sips of Yes 03/02/24 07:01 water? Meds patient instructed to take am of surgery PONV PONV - wholesale account manager: PONV - wholesale account manager Female No 02/07/24 09:14 HX of Motion Sickness No 02/07/24 09:14 HX of N/V After Surgery No 02/07/24 09:14 Non-Smoker Yes 02/07/24 09:14 Duration of Surgery greater Yes 02/07/24 09:14 than 60 minutes Number of Risk Factors 2 02/07/24 09:14 PONV Score Moderate Risk 02/07/24 09:14 Height & Weight Height & Weight: Anesthesia: Height & Weight Height 5 ft 5 in 03/02/24 07:01 Weight: 79.288 kg 03/02/24 07:01 Body Mass Index (BMI) 29.0 03/02/24 07:01 Respiratory Assessment Respiratory Assessment - wholesale account manager: Respiratory Tract Infection Hx - wholesale account manager Hx Respiratory Tract Infection No 02/07/24 09:14 STOP Sleep Apnea STOP Sleep Apnea - wholesale account manager: STOP Sleep Apnea - wholesale account manager Hx Hypertension Yes: CONTROLLED WITH MED 02/07/24 09:14 Hx Sleep Apnea Yes 02/07/24 09:14 CPAP Yes 02/07/24 09:14 BIPAP No 02/07/24 09:14 Do you snore loudly (louder than talking or can be heard Do you often feel tired/ fatigued/ sleepy during daytime? Has anyone observed you stop breathing during sleep? STOP Results Positive 02/07/24 09:14 QUESTION #5 FULL TEXT : Do you snore loudly (louder than talking or can be heard through closed doors)? Tobacco Use History Tobacco Use History - wholesale account manager: Tobacco Use History - wholesale account manager Tobacco Use Smoking Status Never smoker 02/07/24 09:14 Hx Tobacco Use No 02/07/24 09:14 Years Smoking Packs Smoked per Day Smoking Cessation Date was within the last 15 years Hx Smoking Cessation Date Hx Smoking Cessation Counseling Hematologic Medial History Hematologic Hx - wholesale account manager: Hematologic Medical Hx - drywall foreman Hx of Blood Transfusion No 02/07/24 09:14 Hx of Transfusion in last 3 No 02/07/24 09:14 Months Date of Last Transfusion (if within last 3 months) Ever experience any problems No 02/07/24 09:14 with transfusion(s)? Specify any problems Hx of Preganancy in last 3 N/A 02/07/24 09:14 Months Nurse Filling Out Transfusion DSCHRIBER 02/07/24 09:14 & Questions: Date: 02/07/24 02/07/24 09:14 Time: 09:15 02/07/24 09:14 Patient unable to answer at this time (ie. confused, unrespo /Reproduction History /Reproductive History - wholesale account manager: /Reproductive Hx- wholesale account manager Hx Now No 02/07/24 09:14 Gestational Age (in weeks): EDC: Hx Hx Para Hx Section SAB No 02/07/24 09:14 Active Medications Active Medications: Current Medications Generic Name Dose Route Start Last Admin Trade Name Freq PRN Reason Stop Dose Admin Acetaminophen 1,000 mg 03/02/24 08:45 03/02/24 07:06 Acetaminophen 500 Mg Tablet PO 03/02/24 08:46 1,000 mg X1 ONE Administration Acetaminophen 1,000 mg 03/02/24 14:00 Acetaminophen 500 Mg Tablet PO Q8 HOANG Aspirin 81 mg 03/02/24 10:00 Aspirin 81 Mg Tab.Chew PO BID HOANG Cholecalciferol 125 mcg 03/02/24 10:00 Cholecalciferol (Vit D3) 125 Mcg Capsule (5,000 Units) PO DAILY [facility] Sodium Chloride 78.4 ml/ 0 ml 03/02/24 08:45 Ropivacaine 200 mg/ IV 03/02/24 08:46 Epinephrine HCl 0.6 mg/ X1 ONE Morphine Sulfate 5 mg Dexamethasone Sodium Phosphate 10 mg 03/02/24 08:45 Dexamethasone 10 Mg/Ml Vial IV 03/02/24 08:46 X1 ONE Enteral Nutritional Formula 237 ml 03/02/24 08:00 Ensure Surgery 237 Ml Liquid PO TIDCM [facility] Famotidine 20 mg 03/02/24 10:00 Famotidine 20 Mg Tablet PO DAILY HOANG Gabapentin 600 mg 03/02/24 08:45 03/02/24 07:06 Gabapentin 600 Mg Tablet PO 03/02/24 08:46 600 mg X1 ONE Administration Hydrochlorothiazide 12.5 mg 03/02/24 08:00 Hydrochlorothiazide 12.5mg PO BREAKFAST [facility] Protocol Lactated Ringer's 1,000 mls @ 999 mls/hr 03/02/24 08:45 03/02/24 07:12 IV 03/02/24 09:45 999 mls/hr .Q1H1M HOANG Administration Tranexamic Acid 1,000 mg/ 110 mls @ 660 mls/hr 03/02/24 08:45 Sodium Chloride IV 03/02/24 08:54 X1 ONE Tranexamic Acid 1,000 mg/ 110 mls @ 660 mls/hr 03/02/24 08:45 Sodium Chloride IV 03/02/24 08:54 X1 ONE Lactated Ringer's 1,000 mls @ 999 mls/hr 03/02/24 08:45 IV 03/02/24 09:45 .Q1H1M HOANG Lactated Ringer's 1,000 mls @ 125 mls/hr 03/02/24 08:45 IV 03/02/24 16:44 .Q8H HOANG Lactated Ringer's 1,000 mls @ 75 mls/hr 03/02/24 08:45 03/02/24 07:13 IV 03/02/24 22:04 75 mls/hr .[id number] HOANG Administration Magnesium Sulfate 1 gm/ 102 mls @ 408 mls/hr 03/02/24 08:45 03/02/24 07:13 Dextrose IV 03/02/24 08:59 408 mls/hr X1 ONE Administration Cefazolin Sodium 2 gm/ Sodium 110 mls @ 150 mls/hr 03/02/24 08:45 Chloride IV 03/02/24 09:28 PREOP ONE Lactated Ringer's 1,000 mls @ 15 mls/hr 03/02/24 06:45 IV .Q48H HOANG Cefazolin Sodium 1 gm in 50 mls @ 150 mls/hr 03/02/24 14:00 IV 03/02/24 22:19 Q8 HOANG Insulin Human Lispro 1 - 6 unit 03/02/24 08:45 Insulin Lispro 100 Unit/Ml Insuln.Pen SC 03/02/24 18:00 Q4H PRN PRN BG>/= 180, SEE PROTOCOL Protocol Morphine Sulfate 2 - 4 mg 03/02/24 06:47 Morphine 2 Mg/Ml Syringe IV Q2H PRN PRN Pain Score 4-10 Ondansetron HCl 4 mg 03/02/24 06:47 Ondansetron 4 Mg/2 Ml Vial IV Q8H PRN PRN NAUSEA Oxycodone HCl 5 - 10 mg 03/02/24 06:47 Oxycodone 5 Mg Tablet PO Q4H PRN PRN Pain Score 4-10 Pantoprazole Sodium 40 mg 03/02/24 21:00 Pantoprazole Sodium 40 Mg Tablet PO QPM [facility] Promethazine HCl 12.5 mg 03/02/24 06:47 Promethazine 25 Mg/Ml Syringe IM Q6H PRN PRN NAUSEA/VOMITING Protocol Senna/Docusate Sodium 2 tablet 03/02/24 10:00 Senna/Docusate Sodium 1 Tablet PO BID [facility] Sodium Chloride 5 - 15 ml 03/02/24 08:45 0.9% Nacl Peripheral Flush Adult/Peds IV UD PRN SALINE FLUSH PFSH Medical History (Updated 02/07/24 @ 09:21 by Kait Orlando) Wears hearing aid Wears glasses Arthritis Back pain Non-smoker CPAP (continuous positive airway pressure) dependence History of pain when walking GERD (gastroesophageal reflux disease) HTN (hypertension) Home Medications ?Medication ?Instructions ?Recorded ?Last Taken ?Type hydrochlorothiazide 12.5 mg tablet 12.5 mg PO BREAKFAST WATER PILL, 11/16/20 03/02/24 05:30 History BLOOD PRESSURE cholecalciferol (vitamin D3) 125 125 mcg PO DAILY 30 days #30 caps 06/14/22 03/01/24 Rx mcg (5,000 unit) capsule pantoprazole 40 mg tablet,delayed 40 mg PO QPM 02/07/24 03/01/24 17:30 History release Allergy/AdvReac Type Severity Reaction Status Date / Time cefazolin (From [facility]) Allergy Rash Verified 03/02/24 06:57 Surgical History (Updated 02/07/24 @ 09:21 by Kait Orlando) History of dental surgery Hx of foot surgery Hx of shoulder surgery Hx of total shoulder replacement Hx of total knee arthroplasty Status post left hip replacement (~11/30/20) Social History Smoking Status: Never smoker Review of Systems (Anesthesia) ROS Narrative System reviewed and no additional complaints, except as documented.
[2024-03-02 07:44] LABS: Bedside Glucose 164 mg/dL (74-106)
--- NOTE | 2024-03-02 07:45 | RAD_ITS ---
STUDY: X-RAY - PELVIS AND RIGHT HIP REASON FOR EXAM: Male, 79 years old. Pain. TECHNIQUE: 5 intraoperative spot films of the pelvis and right hip. COMPARISON: Pelvis and left hip radiographs dated 11/30/2020. FINDINGS: There is a new right hip arthroplasty in place. There is no periprosthetic fracture. There is surrounding soft tissue gas, compatible with recent/current surgery. Again seen is is a partially imaged left hip arthroplasty. There is a non-specific bowel gas pattern. Normal visualized soft tissue structures. Normal visualized sacrum. Normal bilateral superior and inferior pubic rami. Normal pubic symphysis. Normal bilateral ischial tuberosities. RAD/Hip 1 view with Pelvis IMPRESSION: New right hip arthroplasty, with no periprosthetic fracture. Electronically Signed: Rex Montez MD at 10:04 EDT ,
[2024-03-02] MEDS: Cefazolin 2 GM in 0.9% Normal Saline (100mL Bag) 100 ML IV (08:21)
[2024-03-02] MEDS: TXA 1000mg in NS100 100ml (IVPB at Incision) 660 MG IV (08:34)
[2024-03-02] MEDS: dexAMETHasone 10 MG/ML Vial IV (08:34)
[2024-03-02] MEDS: Lactated Ringers 1,000 ML 125 ML IV (08:45)
--- NOTE | 2024-03-02 08:45 | FEM_PTH ---
PATIENT: DOYLE MIRZA LOC: [id number] U#:[id number] AGE/SX: 79/M ROOM: [id number] RE03/02/[address]: Dr. Sebas Duncan MD : 1945 BED: 1 DIS: 03/03/2024 SPEC #: [id number] RECD: 03/02/24 12:58 STATUS: AYAN REKarin #: [id number] JAIMIE: 03/02/24 08:[address]: Sebas Duncan DEPT: SURGICAL PATHOLOGY RECD BY: Beulah Downey ENTERED: 03/02/24 13:14 SP TYPE: FEM HEAD OTHR DR: SONIA Torres Tissues: Femoral region, NOS Procedures: Decalcification bone/plaque Surgery Specimen Level V HEADER OPERATION: Total hip anterior approach PRE-OP DIAGNOSIS: Right hip osteoarthritis TISSUE SUBMITTED: Right hip bone MICROSCOPIC DIAGNOSIS Right hip bone and soft tissue, total hip replacement/resection: Femoral head with degenerative osteoarthritic changes. SJ:mr 03/05/2024 MICROSCOPIC DESCRIPTION Slides are reviewed. GROSS DESCRIPTION Received is one container labeled with the patient's name and designated bone and soft tissue right hip. The specimen consists of a mendoza femoral head. The femoral head measures 5.0 x 5.5 x 5.0 cm. Also present in the container is a detached piece of bone consistent with femoral neck measuring 5.0 x 3.0 x 1.2cm. The articular surface displays prominent osteophyte formation, and bone erosion. Soft tissue entirely consists of bone reaming and measuring in aggregate 9.0 x 8.0 x 2.0cm. [employer] Specialist sections are submitted in two cassettes as follows: 1 - bone reaming, 2 - femoral head after decalcification. HAYDEE/ 03/02/2024 TC:5 CPT: 19346, 21503
[2024-03-02] MEDS: TXA 1000mg in NS100 100ml (IVPB at Closure) 660 MG IV (09:37)
[2024-03-02] MEDS: Joint Pain Solution (NO KETOROLAC) IV (09:42)
--- NOTE | 2024-03-02 09:44 | PCM.OPRPT ---
Report of Operation Date of Procedure: 03/02/24 Pre-Operative Diagnosis: Right hip primary osteoarthritis Post-Operative Diagnosis: Right hip primary osteoarthritis Surgery/Procedure Performed:: Right minimally invasive direct anterior total hip replacement Description of Surgical Findings:: Stable hip with equal leg length Surgeon: Sebas Duncan animal care service worker: Joseluis Barahona Type of Anesthesia: Spinal Anesthesiologist: Zeke Oviedo Special Medications: 2 g Ancef, 1 g TXA at incision, 1 g TXA closure, 10 mg Decadron, joint cocktail (5 mg Duramorph, 30 mL of 0.5% Ropivicaine, 1000 units of epinephrine, 30 mg of Toradol) Specimen's removed: Bony cuts Estimated Blood Loss (mL): 350 Fluids Replaced: 1600 mL crystalloid Description of Procedure: Components used: 1. Accolade 2 [place] femoral stem size 5 127? 2. [place] trident 2 acetabular shell size 58 mm 3. Prachi X3 polyethylene F 4. Prachi Biolox delta 36mm, 2.5mm femoral head Brief history operative indications: 79 yo F who failed conservative measures for their hip osteoarthritis. X-rays were consistent with osteoarthritis including joint space narrowing, osteophyte formation and subchondral cysts. Total hip replacement was discussed with the patient with risks and benefits including but not limited to blood loss, DVTs, PEs, neurovascular damage, dislocation, general risks of anesthesia including loss of life. Patient demonstrated an understanding medical clearance is obtained the patient was consented for surgery. Procedure: On the date of procedure the patient's right hip was marked in the preoperative area. Patient was then taken back to the operating room where anesthesia assumed control of the C-spine and airway and administered anesthetic. Patient was transferred to the operating table and placed in the supine position. The hips were placed at the break of the bed and a sacral bump was placed. The right lower extremity was then prepped out in a sterile fashion using chlorhexidine while the surgeon scrubbed. The PA was vital in the positioning of the patient. Upon reentering the room the right lower extremity was draped in the standard orthopedic fashion and the incision was marked. A timeout was called and everyone agreed upon the side, the site, the procedure be performed, antibody given, and patient's identity. At this time incision was made through skin, subcutaneous tissue, and fat down to fascia. The fascia was then incised and the TFL was retracted laterally. A retractor was placed on the lateral border of the femoral neck. Attention was directed to the inferior portion of the approach and all crossing vessels were identified and appropriately coagulated. A retractor was then placed on the medial portion of the femoral neck. The anterior capsule was then cleared of all soft tissue and then H shaped capsulotomy was made. The retractors were then placed inside the capsule. The femoral neck was identified and a cleanup cut was made. At this time a power corkscrew was used to remove the femoral head. Attention was then turned toward the acetabulum where the soft tissues were appropriately retracted and the acetabulum was sequentially reamed to 58 mm. A 58 mm cup was then selected and impacted into place. Acetabular liner was impacted into place and locking mechanism was verified. The position of the acetabular cup was then verified under live fluoroscopy. Attention was then turned to the femur. Soft tissue releases on the medial and lateral femoral neck were appropriately done, the leg was externally rotated and lateralized. A Bourne retractor was placed medially and proximally to the greater trochanter this allowed appropriate visualization and exposure of the femoral canal. Rongeour was then used to remove excess lateral bone. A canal finder and entry broach were used to open the proximal canal. Once we verified we were down the femoral canal we subsequently broached up to a size 5 femur. The appropriate neck was placed in the previously selected head was trialed with a 2.5 mm neck. Traction was pulled and the hip was reduced with internal rotation. Once it was appropriately reduced and stability was checked. There was minimal shuck, equal leg lengths and appropriate stability with hyperextension and external rotation as well as with 90? flexion and internal rotation. Fluoroscopy was then also used to verify the position of the components and leg lengths using the contralateral side for comparison. The trial components were then dislocated the proximal femur was again exposed and the components were removed from the wound. The final components were verified and opened. The wound was copiously irrigated out with normal saline. The acetabulum was checked for any residual debris. The final components were placed and impacted. Traction and internal rotation were again used to reduce the hip. After adequate reduction the hip remained stable with appropriate leg lengths. The final components were once again checked with live fluoroscopy and were found to be satisfactory. The wound was then copiously irrigated with normal saline once more, and hemostasis was obtained. Closure was then done using #1 Vicryl runner to close the fascia. A 2-0 vicryl interuppted sutures were used to close the subcutaneous skin. A 3-0 Monocryl and Steri-Strips were used for final skin closure. A Silverlon dressing was placed. Patient was awakened by anesthesia and transferred to the [facility]. Patient was then transferred to the PACU for recovery. During the course of the procedure the physician health care marketing manager (PE) played a vital role. Their intimate knowledge of my steps in the procedure aided in safe and expedient completion of the procedure. The PE played a vital rolls in positioning particularly in obtaining the appropriate positioning of the sacral bump. The PE was also vital in the retraction of soft tissues during the exposure and especially the femoral work as this is a vital part of the procedure to prevent complications and fractures. The PE was also vital and protecting soft tissues during times of bony cuts and reaming. He also played a vital role in closure with my direct supervision. The PE was also important during reduction and dislocation of the joint and trials intraoperatively. Postoperative plan: Patient will get 24 hours postop antibiotics. Patient will get in-house physical therapy and will be weight-bear as tolerated. Patient will follow up in office in 2 weeks for a wound check and x-rays. Aspirin 81 mg twice daily. Complications No intraoperative complications Admit VTE Documentation VTE Present on Admission: No VTE Mechan Device Prophylaxis: SCD's and Thigh High PING Hose VTE Pharm Prophylaxis ordered?: Yes
--- NOTE | 2024-03-02 10:14 | PCM.POST.ANE ---
Anesthesia: Postop Eval I Current Vital Signs Temperature: 96.9 F Pulse Rate: 65 Blood Pressure: 94/42 Respiratory Rate: 16 Pulse Ox: 95 Oxygen Delivery Method: Room Air Assessment Airway patent: Yes Spontaneous unlabored respirations: Yes Mental status: Awake and Calm nausea: No Vomiting: No Anesthesia Complication: No Fluid Hydration Crystalloid volume administer (ml): 1,600 Total IV fluid infused: 1,600 Progress Note Post-operative progress note: DENIES PAIN; NEGATIVE MOTOR; SENSORY LEVEL T8 Anesthesia document: Postop Eval 1 completed: Yes
--- NOTE | 2024-03-02 10:25 | RAD_ITS ---
STUDY: X-RAY - PELVIS AND RIGHT HIP REASON FOR EXAM: Male, 79 years old. Post Op -- AP both hips on single levi/lateral of op hip PACU TECHNIQUE: 2 views of the pelvis and right hip. COMPARISON: Pelvis and left hip radiographs dated 11/30/2020. FINDINGS: There is a new right hip arthroplasty in place. There is no periprosthetic fracture. There is surrounding soft tissue gas, compatible with recent/current surgery. Again seen is is a left hip arthroplasty, without hardware complication. There is a non-specific bowel gas pattern. Normal visualized soft tissue structures. Normal visualized sacrum. Normal bilateral superior and inferior pubic rami. Normal pubic symphysis. Normal bilateral ischial tuberosities. RAD/Hip Min 2 Views (Portable) IMPRESSION: New right hip arthroplasty, with no periprosthetic fracture. Electronically Signed: Rex Montez MD at 10:41 EDT ,
--- NOTE | 2024-03-02 11:13 | POSTOPAN2_ITS ---
Anesthesia Postop Eval I Sum Postop Eval Completion status Anesthesia document: Postop Eval 1 completed: Yes Anesthesia Postop Eval I Summary Anesthesia Postop Eval I Summary: Anesthesia Postop Eval I: Assessment Summary Airway patent Yes 03/02/24 10:15 [email or web address] Spontaneous unlabored Yes 03/02/24 10:15 [email or web address] [email or web address] respirations Mental status Awake,Calm 03/02/24 10:15 [email or web address] [email or web address] nausea No 03/02/24 10:15 [email or web address] [email or web address] Vomiting No 03/02/24 10:15 [email or web address] [email or web address] Anesthesia Postop Eval I: Fluid Summary Crystalloid volume administer 1,600 03/02/24 10:15 [email or web address] (ml) Colloids volume administered ( ml) Blood Product volume administered (ml) Total IV fluid infused 1,600 03/02/24 10:15 [email or web address] Anesthesia Postop Eval I: Summary Notes Anesthesia Complication No 03/02/24 10:15 [email or web address] Anesthesia Complication Comment: Post-operative progress note DENIES PAIN; 03/02/24 10:15 [email or web address] NEGATIVE MOTOR; SENSORY LEVEL T8 Anesthesia: Postop Eval II Evaluation Mental status: Awake Pain Level: 0 nausea: No Vomiting: No
--- NOTE | 2024-03-02 11:13 | PCM.POSTANE2 ---
Anesthesia Postop Eval I Sum Postop Eval Completion status Anesthesia document: Postop Eval 1 completed: Yes Anesthesia Postop Eval I Summary Anesthesia Postop Eval I Summary: Anesthesia Postop Eval I: Assessment Summary Airway patent Yes 03/02/24 10:15 PRODUCT SUPPORT [email or web address] Spontaneous unlabored Yes 03/02/24 10:15 PRODUCT SUPPORT [email or web address] respirations Mental status Awake,Calm 03/02/24 10:15 PRODUCT SUPPORT [email or web address] nausea No 03/02/24 10:15 PRODUCT SUPPORT [email or web address] Vomiting No 03/02/24 10:15 PRODUCT [email or web address] [email or web address] Anesthesia Postop Eval I: Fluid Summary Crystalloid volume administer 1,600 03/02/24 10:15 PRODUCT [email or web address] [email or web address] (ml) Colloids volume administered ( ml) Blood Product volume administered (ml) Total IV fluid infused 1,600 03/02/24 10:15 PRODUCT [email or web address] [email or web address] Anesthesia Postop Eval I: Summary Notes Anesthesia Complication No 03/02/24 10:15 PRODUCT [email or web address] [email or web address] Anesthesia Complication Comment: Post-operative progress note DENIES PAIN; 03/02/24 10:15 PRODUCT SUPPORT [email or web address] NEGATIVE MOTOR; SENSORY LEVEL T8 Anesthesia: Postop Eval II Evaluation Mental status: Awake Pain Level: 0 nausea: No Vomiting: No
[2024-03-02] MEDS: Cefazolin 1 GM/50 ML BAG IV ×2 (15:39→23:39)
--- NOTE | 2024-03-02 19:44 | PN.HOSP_ITS ---
Reason for Visit Reason for Visit: Diagnoses Encounter for other preprocedural examination (03/02/24) Subjective Subjective Patient was seen and examined at the request of orthopedic surgery today, he underwent a robotic right hip replacement due to osteoarthritis. Patient's chronic medical problems include obstructive sleep apnea, hypertension, GERD, and OA. Patient has his own CPAP machine here and will be using it tonight. Objective Data Objective Data Vital Signs: Vital Signs Temp Pulse Resp BP Pulse Ox O2 Del Method O2 Flow Rate 98.3 F 83 16 132/80 H 97 Room Air 4 03/02/24 16:20 03/02/24 16:20 03/02/24 16:20 03/02/24 16:20 03/02/24 16:20 03/02/24 17:15 03/02/24 11:10 Oxygen Flow Rate (L/min) 4 Oxygen Delivery Method Room Air Weight: 79.2 kg Body Mass Index (BMI) 29.0 Intake & Output: Intake and Output for Last 24 Hours 02/29/24 03/01/24 03/02/24 23:59 23:59 23:59 Intake Total 4782 / 4782 Output Total 400 / 400 Balance 4382 / 4382 Lab / Micro Data 02/10/24 07:40 02/10/24 07:40 Labs: Laboratory Results - last 24 hr 03/02/24 06:54: POC Glucose 164 H Micro: Microbiology 02/10/24 07:40 Swab (Method) Nasal Screen MRSA/MSSA - Final Radiography Diagnostic Testing: Radiology Impression Hip/Pelvis X-Ray 03/02/24 07:45 IMPRESSION: New right hip arthroplasty, with no periprosthetic fracture. Electronically Signed: Rex Montez MD at 10:04 EDT , Hip X-Ray 03/02/24 10:25 IMPRESSION: New right hip arthroplasty, with no periprosthetic fracture. Electronically Signed: Rex Montez MD at 10:41 EDT , Physical Exam Const alert, oriented x3, no apparent distress, average body habitus and healthy appearing General Appearance: cooperative, well kempt and well developed Orientation / Consciousness: awake, oriented to person, oriented to place and oriented to time HEENT normocephalic, head/scalp atraumatic and moist oral mucous membranes Eyes PERRL, EOMs intact bilaterally and conjunctivae normal Neck supple, no JVD, thyroid normal and no carotid bruits General: trachea midline Resp normal respiratory effort, no retractions, no use of accessory muscles and clear to auscultation bilaterally Auscultation: Negative for rales, rhonchi or wheezes Cardio regular rate, regular rhythm, S1 normal heart sound, S2 normal heart sound, no murmurs, no rub and no gallops GI normal to inspection, nondistended, normoactive bowel sounds, soft to palpation, non-tender and non-distended Neuro oriented x3, CN's II-XII intact bilaterally, moves all extremities, no focal motor deficits and no sensory deficits noted Sensorium / Orientation: awake and alert Speech: speech normal Psych affect normal Assessment & Plan Assessment/Plan (1) Osteoarthritis: PLAN: Plan 1. Essential hypertension-patient will remain on hydrochlorothiazide and lisinopril #2 GERD-patient is on Protonix #3 obstructive sleep apnea-patient uses his own CPAP machine #4 osteoarthritis of the right hip postop day 0 robotic right hip replacement- patient is being seen by PT and OT, orthopedic surgery is participating in his care Total clinical time spent by myself addressing the patient's medical issues, reviewing all of his data, and collaborating with patient's care team: 30-minute Charges/Coding Visit Charges Office Visits / Consults: [id number] OV L4 Est 30min
[2024-03-02] MEDS: Pantoprazole Sodium 40 MG Tablet PO (21:35)
[2024-03-02] MEDS: Aspirin 81 MG TAB.CHEW PO (21:36)
[2024-03-02] MEDS: oxyCODONE 5 MG Tablet PO (21:36)
[2024-03-02] MEDS: Senna/Docusate Sodium 1 Tablet 2 TABLET PO (21:36)
[2024-03-02] MEDS: Lisinopril 10 MG Tablet PO (21:36)
[2024-03-03 03:39] VITALS: BP 127/76; PULSE 73; RESP 18; TEMP 36.8; O2SAT 95
[2024-03-03 05:48] VITALS: BP 114/55; PULSE 71; RESP 16; TEMP 36.6; O2SAT 95
[2024-03-03] MEDS: Acetaminophen 500 MG Tablet 1000 MG PO (05:50)
[2024-03-03] MEDS: oxyCODONE 5 MG Tablet PO (05:50)
[2024-03-03 07:15] LABS: Hematocrit 36.7 % (40-54); Hemoglobin 12.5 g/dL (13.0-16.5); Mean Corp Hgb Conc 34.1 g/dL (32-36); Mean Corpuscular Volume 91.1 fL (80-94); Mean Platelet Vol. 9.6 fl (6.2-12.0); Platelet Count 173 K/mm3 (150-450); RBC Distribution Width CV 12.7 % (11.6-14.6); RBC Distribution Width SD 41.9 fl (35.1-43.9); Red Blood Count 4.03 M/mm3 (4.6-6.2); White Blood Count 12.2 K/mm3 (4.4-11.0)
[2024-03-03 07:39] LABS: Anion Gap 5 (5-15); BUN 24 mg/dL (7-18); BUN/Creat Ratio 17.6 RATIO (10-20); Calcium,Total 8.8 mg/dL (8.5-10.1); Chloride 105 mmol/L (98-107); Creatinine, Serum 1.36 mg/dL (0.70-1.30); EST Glomerular Filtration Rate 54 mL/min (>60); Est Glom Filt Rate - Afr Amer 65 mL/min (>60); Estimated Creatinine Clearance 42.02 ml/min; Glucose 146 mg/dL (74-106); Potassium 4.3 mmol/L (3.5-5.1); Sodium Level 137 mmol/L (136-145)
--- NOTE | 2024-03-03 07:57 | PN.ORTHO_ITS ---
Subjective Subjective The patient was sitting in bedside chair upon examination. Patient denies any chest pain, shortness of breath, dizziness, lightheadedness, nausea or vomiting, or calf pain. Pain is controlled on medications. No adverse overnight events. Patient is doing well this morning. He has no complaints. He has been up walking. Patient is wishing to go home today. Objective Data Objective Data Vital Signs: Vital Signs Temp Pulse Resp BP Pulse Ox O2 Del Method O2 Flow Rate 98 F 71 16 114/55 L 95 Room Air 4 03/03/24 05:48 03/03/24 05:48 03/03/24 05:48 03/03/24 05:48 03/03/24 05:48 03/03/24 05:48 03/02/24 11:10 Oxygen Flow Rate (L/min) 4 Oxygen Delivery Method Room Air Weight: 79.2 kg Body Mass Index (BMI) 29.0 Intake & Output: Intake and Output for Last 24 Hours 03/01/24 03/02/24 03/03/24 23:59 23:59 23:59 Intake Total 4782 / 5532 1550 / 1550 Output Total 400 / 1800 2300 / 2300 Balance 4382 / 3732 -750 / -750 Lab / Micro Data 03/03/24 06:49 03/03/24 06:49 Labs: Laboratory Results - last 24 hr 03/03/24 06:49: WBC 12.2 H, RBC 4.03 L, Hgb 12.5 L, Hct 36.7 L, MCV 91.1, MCH 31.0, MCHC 34.1, RDW Std Deviation 41.9, RDW Coeff of Erinn 12.7, Plt Count 173, MPV 9.6, Sodium 137, Potassium 4.3, Chloride 105, Carbon Dioxide 27.0, Anion Gap 5, BUN 24 H, Creatinine 1.36 H, Estim Creat Clear Calc 42.02, Est GFR (MDRD) Af Amer 65, Est GFR (MDRD) Non-Af 54 L, BUN/Creatinine Ratio 17.6, Glucose 146 H, Calcium 8.8 Micro: Microbiology 02/10/24 07:40 Swab (Method) Nasal Screen MRSA/MSSA - Final Radiography Diagnostic Testing: Radiology Impression Hip/Pelvis X-Ray 03/02/24 07:45 IMPRESSION: New right hip arthroplasty, with no periprosthetic fracture. Electronically Signed: Rex Montez MD at 10:04 EDT , Hip X-Ray 03/02/24 10:25 IMPRESSION: New right hip arthroplasty, with no periprosthetic fracture. Electronically Signed: Rex Montez MD at 10:41 EDT , Physical Exam Narrative Vital signs stable and afebrile. CPAP overnight Right hip is soft and supple SCDs and PING hose are in place bilaterally Patient is able to plantarflex and dorsiflex actively. Sensation is intact to light touch to saphenous, sural, superficial and deep peroneal, and tibial distribution. Dressing is clean dry and intact. Negative Homans bilaterally, negative signs and symptoms of DVT. Const alert, oriented x3 and no apparent distress Assessment & Plan Assessment/Plan (1) S/P total right hip arthroplasty: PLAN: 1. S/P direct anterior right total hip arthroplasty POD #1 2. Continue Pain Medications: Tylenol and oxycodone. Patient has no documented history of chronic kidney disease however patient's lab work preoperatively did reveal elevated BUN and creatinine as well as decreased GFR. We are avoiding nonsteroidal anti-inflammatories postoperatively. I did discuss with the patient he should talk with his primary care physician with regards to his kidney function. Labs have been stable from preoperative findings. 3. DVT Prophylaxis: Take 81 mg aspirin twice daily for 4 weeks postoperatively for DVT prophylaxis. Patient denies past history of DVT or pulmonary embolism. 4. PT/OT: Weightbearing as tolerated with walker 5. H & H: 12.5/36.7, asymptomatic. Labs have been reviewed. Again I do feel patient has underlying chronic kidney disease and was advised to follow-up with his primary care physician for this discussion in the future. We are avoiding nonsteroidal anti-inflammatories. Patient did stop his meloxicam that he was taking at home 6. Reactive leukocytosis: 12.2, Afebrile. Patient did receive Decadron intraoperatively. No clinical signs of infection. 7. Encouraged Incentive Spirometry 8. Patient is aware of postoperative constipation that can occur from 1-3 days postoperatively. Will continue with senna 2 tablets twice daily until first bowel movement. Patient was advised if not having a bowel movement after day 3 she is to contact orthopedics so appropriate change can be made. Patient voiced understanding. 9. Continue postoperative medical treatment per medicine 10. Disposition: Plan will be for discharge home today as long as patient remains medically stable, tolerates therapy, and pain is adequately controlled. Patient would like his prescriptions E scribed to [facility] in [facility]. He will follow-up per postoperative instructions. He does have outpatient physical therapy established. Upon discharge she will contact our office with any concerns or questions. I have reviewed the [place] Automated Rx Reporting System (OARRS) report for this patient for refill pattern and other prescriber involvement as part of the appropriate surveillance for the provision of acute and chronic controlled medications. The report was requested and reviewed on the date of this entry and was considered in the prescribing process. This dictation was created using voice recognition software. Phonetic and/or grammatical errors may exist.
--- NOTE | 2024-03-03 08:02 | DCINST_ITS ---
Discharge Instructions Diet Discharge Diet: No restrictions Activity Discharge Activity: May Not Drive (No driving for 6 weeks postoperatively. Must also be off all narcotics and able to walk 100 feet without the use of cane or walker.) May shower in (days): 1 (only if incision is dry and without drainage. Do NOT soak/submerge in tub/pool/arroyo/stream/hot tub.)) Ice area for (Minutes): 20 (Every 1-2 hours while awake[address] place barrier between ice and skin.) Weight Bearing Status: Weight bearing as tolerated Keep extremity elevated above heart level: Operative Extremity Dressing / Incision Call your doctor if your incision/area has: Continuous Slow Oozing, Sudden Increased Bleeding, Increased Pain/ Swelling, Increased Redness and Foul Smelling Discharge Call your doctor if you observe: Fever of 101 or Higher, Shortness of breath, Chest pain, Calf discomfort and Uncontrolled pain Remove Dressing in: 4 days (Okay to remove dressing on March 07, 2024) Additional Dressing/Incision Instructions:: Follow [facility] Post-op Instructions. Once postoperative dressing has been removed, only use gentle soap and water over the incision. Do not use any ointments, Neosporin, salves, alcohol pads over the incision for 6 weeks postoperatively. Do not submerge underwater for 6 weeks postoperatively. Continue with PING hose/elastic stockings for 2 weeks postoperatively. May remove at nighttime but needs to be placed back on the leg during the day. Do NOT use alcohol with narcotic pain medication. Do NOT make important decisions while taking narcotic medication. If you have problems with taking your medication (rash, itching, nausea, etc.) call the office at once. Follow Up Care Test Results: Test results from this visit will be discussed in further detail at your follow- up appointment, if applicable. Discharge Plan Admission Admit Date/Time: 03/02/24 06:47 Attending Provider: Sebas Duncan Primary Care Provider: Jessika Dela Cruz Consulting Providers: Evan Arredondo; Irish Llanes; Ntahaniel Suarez; Kenny Potts Discharge Orders/Prescriptions Prescriptions: New acetaminophen 500 mg Tablet 1,000 mg PO Q8 14 Days Qty: 84 0RF Rx Instructions: Do not take more than 3000 mg Tylenol in a 24-hour period. aspirin 81 mg Tablet,Chewable 81 mg PO BID 30 Days Qty: 60 0RF Rx Instructions: Take 81 mg aspirin twice daily for 4 weeks postoperatively for DVT prophylaxis. oxycodone 5 mg Tablet 5 - 10 mg PO Q4H PRN PRN (Reason: as needed for pain) 7 Days Qty: 36 0RF sennosides-docusate sodium [Stimulant Laxative Plus] 8.6-50 mg Tablet 2 tab PO BID 3 Days Qty: 12 0RF Rx Instructions: Take until first bowel movement, then as needed Continued hydrochlorothiazide 6.25 MG tablet 12.5 mg PO BREAKFAST Patient Comments: TAKE 1 TABLET BY MOUTH EVERY MORNING cholecalciferol (vitamin D3) 125 mcg (5,000 unit) Capsule 125 mcg PO DAILY 30 Days Qty: 30 0RF pantoprazole 40 mg tablet,delayed release (DR/EC) 40 mg PO QPM Referrals / Follow Up: Physical,Therapy [Other] - 03/05/24 9:00 am Jessika Dela Cruz PA [Primary Care Provider] - Tye Dupont PA-C [Med Staff - [facility] Practice Prof] - 03/18/24 2:15 pm Disposition Disposition (needs filled in before D/C Order can be placed): Home, Self Care
[2024-03-03 08:09] VITALS: BP 114/62; PULSE 63; RESP 18; TEMP 36.9; O2SAT 96
--- NOTE | 2024-03-03 09:29 | PCM.PN.HOSP ---
Reason for Visit Reason for Visit: Diagnoses Unspecified osteoarthritis, unspecified site (03/02/24) Encounter for other preprocedural examination (03/02/24) Presence of right artificial hip joint (03/02/24) Objective Data Objective Data Vital Signs: Vital Signs Temp Pulse Resp BP Pulse Ox O2 Del Method O2 Flow Rate 98.4 F 63 18 114/62 96 Room Air 4 03/03/24 08:09 03/03/24 08:09 03/03/24 08:09 03/03/24 08:09 03/03/24 08:09 03/03/24 08:09 03/02/24 11:10 Oxygen Flow Rate (L/min) 4 Oxygen Delivery Method Room Air Weight: 174 lb 9.698 oz Body Mass Index (BMI) 29.0 Intake & Output: Intake and Output for Last 24 Hours 03/01/24 03/02/24 03/03/24 23:59 23:59 23:59 Intake Total 4782 / 5532 1550 / 1550 Output Total 400 / 1800 2300 / 2300 Balance 4382 / 3732 -750 / -750 Lab / Micro Data 03/03/24 06:49 03/03/24 06:49 Labs: Laboratory Results - last 24 hr 03/03/24 06:49: WBC 12.2 H, RBC 4.03 L, Hgb 12.5 L, Hct 36.7 L, MCV 91.1, MCH 31.0, MCHC 34.1, RDW Std Deviation 41.9, RDW Coeff of Erinn 12.7, Plt Count 173, MPV 9.6, Sodium 137, Potassium 4.3, Chloride 105, Carbon Dioxide 27.0, Anion Gap 5, BUN 24 H, Creatinine 1.36 H, Estim Creat Clear Calc 42.02, Est GFR (MDRD) Af Amer 65, Est GFR (MDRD) Non-Af 54 L, BUN/Creatinine Ratio 17.6, Glucose 146 H, Calcium 8.8 Micro: Microbiology 02/10/24 07:40 Swab (Method) Nasal Screen MRSA/MSSA - Final Radiography Diagnostic Testing: Radiology Impression Hip/Pelvis X-Ray 03/02/24 07:45 IMPRESSION: New right hip arthroplasty, with no periprosthetic fracture. Electronically Signed: Rex Montez MD at 10:04 EDT , Hip X-Ray 03/02/24 10:25 IMPRESSION: New right hip arthroplasty, with no periprosthetic fracture. Electronically Signed: Rex Montez MD at 10:41 EDT , Physical Exam Narrative Seen and examined. Patient walking in the hallway with the physical therapy. Not in acute distress. Had not moved bowel movement in the morning. Has urge for defecation. Voiding urine spontaneously. Physical exam General: Alert, Oriented x3, Cooperative HEENT: Atraumatic, PERRLA, EOMI, Normocephalic Oral: No Gingival or Mucosal Lesions/ Ulcerations Neck: Supple, No JVD, Negative Carotid Bruits Chest wall/Lungs: Air entry equal in bilateral lung bases. No crepitation/rhonchi Cardiovascular: Regular rate, Regular Rhythm, Normal S1, Normal S2, No M/G/R Abdomen: Bowel Sounds Present, Soft, Non Tender, Non-Distended : No dysuria. No renal angle tenderness. No suprapubic tenderness. Extremities: No edema, Capillary Refill Less than 3 Seconds Skin: Right hip surgical dressing is dry. Musculoskeletal: Mild tenderness on right hip status post surgery. Range of motion full in other joints. Neurological: Cranial nerves II-XII grossly intact, DTR 2+/4. No acute focal neurological deficit. Psych/Mental Status: Normal Affect, Appropriate. Assessment & Plan Assessment/Plan (1) Osteoarthritis: PLAN: Plan 1. Essential hypertension-blood pressure is on lower side. Patient states his blood pressure at home is fully 120s to 130s. Advised to hold HCTZ for SBP less than 130 mmHg. If BP is persistently low in the 110s, can discontinue HCTZ as patient already on lisinopril #2 GERD-patient is on Protonix #3 obstructive sleep apnea-patient uses his own CPAP machine #4 osteoarthritis of the right hip: The patient had robotic right hip replacement on 03/02/2024. Patient is doing well with physical therapy. Plan for discharge today by orthopedic surgery
[2024-03-03] MEDS: Cholecalciferol (Vit D3) 125 MCG CAPSULE (5,000 UNITS) PO (10:09)
[2024-03-03] MEDS: Famotidine 20 MG Tablet PO (10:09)
[2024-03-03] MEDS: Aspirin 81 MG TAB.CHEW PO (10:09)
[2024-03-03] MEDS: Senna/Docusate Sodium 1 Tablet 2 TABLET PO (10:10)
--- NOTE | 2024-03-03 10:35 | CASEMGMT ---
KISHA MARRERO Assessment: Face to Face with pt for initial transition planning/care coordination assessment. RN JANES introduced self and role at [facility], pt voices understanding and consents to assessment. Pt is A&O x4 and answers all questions appropriately at this time. Pt sitting up in bed in no distress. Care providers, pharmacy, and demographics verified/updated. Strata: 1 Admitting Dx: Total Hip Anterior Approach PCP: Jose De Jesus Specialists: Dakota Stubbs Pharmacy: [facility] Insurance: [facility] Prescription Benefit: No LNOK: Living Arrangements: Pt lives with in an apartment with 1 step to enter. ADLs: Pt reports I with ADLS and IADLS. Transportation: Pt drives self and denies concerns with transportation. DME: Wheeled walker, grab bars, Comfort ht commode. HHC/SNF: Denies Hx of. Pt states no concerns with going home at time of dc. Pt states no further concerns/needs. CM to follow. Advised pt to ask CM if any further question/concerns/needs arise, voices understanding. Pt Goal: Home Plan: Home, Pt to start outpatient PT SOC 03/05/24. Gifty BEARD CM
[2024-03-03 11:58] VITALS: BP 101/55; PULSE 67; RESP 18; TEMP 36.6; O2SAT 98
== END 2024-03-03 13:10 | disposition home or self-care (01) ==
LOC: SDC 16:08 → MS3 16:08
PROVIDERS: Anesthesiology; Admitting Provider Specialist; Referring Provider Specialist; Visit Provider Specialist
PROC: (CPT 27284; principal; 2024-03-02 08:20)
DX: M16.11 Unilateral primary osteoarthritis, right hip (principal); G47.30 Sleep apnea, unspecified; K21.9 Gastro-esophageal reflux disease without esophagitis; I10 Essential (primary) hypertension; E78.00 Pure hypercholesterolemia, unspecified; Z79.899 Other long term (current) drug therapy
CPT/HCPCS: 27130; 01214; 36415; 73501; 73502; 76000; 80048; 82040; 82962; 83735; 85025; 85027; 87081; 88307; 88311; 93005; 94668; 96365; 96366; 96375; 97162; 97165; 97530; 97535; 99221; 99252; C1776; J7120; G0378; G0463; J2405; J3475

== ENCOUNTER → 2025-06-30 | Outpatient (CLI) | payer MEDICARE, SELFPAY ==
--- NOTE | 2025-06-30 12:53 | NEURO ---
NCS and/or EMG Patient Report Ordering Doctor: Jessika Dela Cruz DATE OF SERVICE: 06/30/25 Claudy presents for electrodiagnostic testing of the upper limbs. Reports numbness and tingling in the hands, primarily on the right side. Electrodiagnostic findings: Right median motor nerve demonstrates prolonged latency with normal amplitude and reduced conduction velocity. Left median motor nerve demonstrates normal distal latency and amplitude with reduced conduction velocity. Borderline prolonged left median sensory latency at the wrist. Prolonged right median sensory latency at the wrist. Normal ulnar motor response bilaterally, including conduction across the elbow. Right median F?wave. Needle EMG testing was performed upper limbs. All muscles tested showed no evidence of denervation with normal motor unit action potentials. Electrodiagnostic impression: This is an abnormal study. 1. Electrodiagnostic findings suggestive of bilateral median mononeuropathy. This is consistent with a moderate to advanced right carpal tunnel syndrome and a mild left carpal tunnel syndrome Multi Select Codes Neurology Neurology Interp Codes: 28441-20 Musc test done w/n test comp (interp) (2) and 33004-34 Nr cndj test 9-10 studies (interp)
== END | disposition home or self-care (01) ==
DX: R20.0 Anesthesia of skin (principal)
CPT/HCPCS: 95886; 95911